=== PATIENT | male | born 1950 | race Caucasian/White ===

== ENCOUNTER 2018-04-13 10:02 | Outpatient (CLI) | payer MEDICARE, SELFPAY ==
[2018-04-13 12:52] LABS: Cholesterol 200 mg/dL (50-200); Glucose 93 mg/dL (70-100); HDL Cholesterol 55 mg/dL (40-60); LDL CHOLESTEROL 133 mg/dL (<100); Triglyceride 109 mg/dL (30-150)
== END 2018-04-13 10:22 ==
LOC: LBO 10:03 → LOS 13:51
PROVIDERS: PCP Family Medicine; Visit Provider Family Medicine
DX: E78.5 Hyperlipidemia, unspecified (principal); I10 Essential (primary) hypertension
CPT/HCPCS: 36415; 80053; 80061; 82947; 83721; 82565; 84132

== ENCOUNTER 2018-12-22 12:26 | Outpatient (CLI) | payer MEDICARE, SELFPAY ==
--- NOTE | 2018-12-22 09:30 | DI.RAD_ITS ---
SYMPTOM/DIAGNOSIS: PROGRESSIVE LT KNEE PAIN, M25.562 LEFT KNEE: There is mild to moderate narrowing of the medial femoral tibial joint space and mild cole-articular spurring. There is also spurring at the articular aspect of the patella. IMPRESSION: Mild to moderate degenerative changes.
== END 2018-12-22 12:46 ==
PROVIDERS: PCP Family Medicine; Visit Provider Family Medicine
DX: M25.562 Pain in left knee (principal); M17.12 Unilateral primary osteoarthritis, left knee
CPT/HCPCS: 73562

== ENCOUNTER 2019-04-13 11:55 | Outpatient (CLI) | payer MEDICARE, SELFPAY ==
[2019-04-13 13:40] LABS: Calculated LDL 130 mg/dL; Cholesterol 213 mg/dL (50-200); HDL Cholesterol 62 mg/dL (40-60); Potassium 4.5 mmol/L (3.5-5.1); Triglyceride 106 mg/dL (30-150)
== END 2019-04-13 12:15 ==
PROVIDERS: PCP Family Medicine; Visit Provider Family Medicine
DX: I10 Essential (primary) hypertension (principal); E78.5 Hyperlipidemia, unspecified
CPT/HCPCS: 36415; 80061; 82565; 84132

== ENCOUNTER 2020-03-14 14:01 | Outpatient (CLI) | payer MEDICARE, SELFPAY ==
--- NOTE | 2020-03-14 11:05 | DI.RAD_ITS ---
EXAM: XR CHEST 2V PA LATERAL CLINICAL HISTORY: sob, chronic cough, loss of taste, R05 TECHNIQUE: 2D digital imaging was performed. COMPARISON: No exams were available for comparison FINDINGS: The heart is not enlarged. The lungs are clear and well expanded. No pleural effusion seen. Mediastin al contours appear intact. IMPRESSION: Normal chest
== END 2020-03-14 14:21 ==
PROVIDERS: PCP Family Medicine; Visit Provider Family Medicine
DX: R05 Cough (principal); R06.02 Shortness of breath; R43.8 Other disturbances of smell and taste
CPT/HCPCS: 71046

== ENCOUNTER 2020-03-16 08:40 | Outpatient (CLI) | payer MEDICARE, SELFPAY ==
[2020-03-19 10:49] LABS: SARS-CoV-2 RNA Undetected (Undetected); SARS-CoV-2 Specimen Source Nasopharynx
== END 2020-03-16 09:00 ==
PROVIDERS: PCP Family Medicine; Visit Provider Family Medicine
DX: Z11.59 Encounter for screening for other viral diseases (principal)
CPT/HCPCS: U0003

== ENCOUNTER 2020-03-19 02:35 | Outpatient (CLI) | payer MEDICARE, SELFPAY ==
[2020-03-19 12:22] LABS: HCT 43.7 % (40.0-50.0); HGB 14.2 g/dL (13.5-17.5); MCH 29.8 pg (27.0-33.0); MCHC 32.5 % (32.0-36.0); MCV 91.8 fL (80-95); MPV 13.8 fL (8.0-11.0); RBC 4.76 10^6/uL (4.36-5.78); RDW 13.1 % (11.8-14.1); RDW-SD 43.9 fL; WBC 18.77 10^3/uL (4.4-10.8)
[2020-03-19 12:41] LABS: ALT 26 U/L (16-63); AST 25 U/L (15-37); Albumin 2.6 g/dL (3.4-5.0); Alkaline Phosphatase 107 U/L (46-116); Anion Gap 9.2 mmol/L (3-11); BUN 18 mg/dL (7-18); Bilirubin, Total 0.5 mg/dL (0.2-1.0); CO2 28.8 mmol/L (21.0-32.0); CREATININE 0.75 mg/dL (0.70-1.30); Calcium 9.8 mg/dL (8.5-10.1); Chloride 96 mmol/L (98-107); Glucose 100 mg/dL (74-106); Potassium 5.1 mmol/L (3.5-5.1); Sodium 134 mmol/L (136-145); TSH (W/Ref FT4) 1.22 uIU/mL (0.36-3.74); Total Protein 6.9 g/dL (6.4-8.2)
[2020-03-19 13:00] LABS: Platelet Count 447 10^3/uL (130-400)
== END 2020-03-19 02:55 ==
PROVIDERS: PCP Family Medicine; Visit Provider Family Medicine
DX: E03.9 Hypothyroidism, unspecified (principal); R53.83 Other fatigue; R63.4 Abnormal weight loss
CPT/HCPCS: 36415; 80053; 85027; 84443

== ENCOUNTER 2020-03-23 03:52 | Outpatient (CLI) | payer MEDICARE, SELFPAY ==
--- NOTE | 2020-03-23 06:45 | DI.US_ITS ---
EXAM: US SOFT TISSUE HEAD OR NECK CLINICAL HISTORY: left supraclavicular fullness,LYMPH NODE ENLARGEMENT,R59.9. TECHNIQUE: Ultrasound was performed using standard protocol. COMPARISON: CT CTA AORTA W/RUNOFF from 04/09/2017 CR XR CHEST 2V PA LATERAL from 03/14/2020 FINDINGS: Sonographic assessment utilizing grayscale and color Doppler imaging was performed and targeted to th e area of clinical concern. On the left side of the neck, there are multiple hypoechoic circumscribed ovoid nodules, consistent w ith abnormally enlarged lymph nodes. The fatty hilum is not maintained. Largest node is inferior in the supraclavicular region and measures 2.3 cm in greatest dimension. No abnormally enlarged lymph nodes are seen on the right side of the neck. IMPRESSION: Multiple enlarged lymph nodes on the left side of the neck. The findings could be secondary to inf ectious or inflammatory causes however lymphoma or metastatic nodes are not excluded. DATA REPOSITORY:
== END 2020-03-23 04:12 ==
PROVIDERS: PCP Family Medicine; Visit Provider Family Medicine
DX: R59.9 Enlarged lymph nodes, unspecified (principal)
CPT/HCPCS: 76536

== ENCOUNTER 2020-04-02 04:56 | Outpatient (CLI) | payer MEDICARE, SELFPAY ==
[2020-04-02 12:53] LABS: Abs Immature Grans 0.13 10^3/uL (0.0-0.06); HCT 39.4 % (40.0-50.0); HGB 12.7 g/dL (13.5-17.5); MCH 29.7 pg (27.0-33.0); MCHC 32.2 % (32.0-36.0); MCV 92.1 fL (80-95); MPV 13.3 fL (8.0-11.0); Nucleated RBC 0 %; Platelet Count 512 10^3/uL (130-400); RBC 4.28 10^6/uL (4.36-5.78); RDW 13.6 % (11.8-14.1); RDW-SD 46.3 fL; WBC 19.13 10^3/uL (4.4-10.8)
[2020-04-02 13:16] LABS: Absolute Eosinophil Count 0.19 10^3/uL (0.0-0.7); Absolute Lymphocyte Count 0.57 10^3/uL (1.2-3.4); Absolute Monocyte Count 1.15 10^3/uL (0.1-0.8); Absolute Neutrophil Count 17.22 10^3/uL (1.2-6.7)
[2020-04-02 13:17] LABS: Diff Comment Manual Differential; RBC Morphology Normal
== END 2020-04-02 05:16 ==
PROVIDERS: PCP Family Medicine; Visit Provider Family Medicine
DX: D72.829 Elevated white blood cell count, unspecified (principal)
CPT/HCPCS: 36415; 85025

== ENCOUNTER → 2020-04-06 08:59 | Outpatient (BNVA) | payer MEDICARE, SELFPAY | PROVIDERS: PCP Family Medicine; Referring Provider Family Medicine; Visit Provider Surgery | DX: D72.820 Lymphocytosis (symptomatic) (principal); R59.9 Enlarged lymph nodes, unspecified; R63.4 Abnormal weight loss; I10 Essential (primary) hypertension; F17.210 Nicotine dependence, cigarettes, uncomplicated | CPT/HCPCS: 99203 ==

== ENCOUNTER 2020-04-11 01:19 | Outpatient (CLI) | payer MEDICARE, SELFPAY ==
--- NOTE | 2020-04-11 08:00 | DI.CT_ITS ---
EXAM: CT NECK CHEST ABD PEL W CLINICAL HISTORY: LYMPH NODE ENLARGEMENT,WT LOSS, R59.9, R63.4, ASSESS FOR LYMPHADENOPATHY AND ? MAS S TECHNIQUE: Imaging Protocol: Axial computed tomography images with coronal and sagittal reformatted images were created and reviewed CONTRAST MATERIAL: Intravenous: Omnipaque 350 Contrast volume:140 cc contrast route:IV - Oral: yes / COMPARISON: CT CTA AORTA W/RUNOFF from 04/09/2017 FINDINGS: Neck CT: Parotids/submandibular/thyroid gland: Normal. Lymphadenopathy: There are several abnormally enlarged lymph nodes seen at the left lower internal j ugular region, level IV, and innumerable nodes seen in the lower posterior neck, level V. The larges t measures up to 2.3 cm in size. Carotids/Jugular: There is mild calcific plaque at both common carotid bulbs but no significant sten osis. Soft tissues: The floor the mouth is unremarkable. The epiglottis and vocal cords are within normal limits. Images through both lung apices are unremarkable. Chest CT: Tracheobronchial tree: Patent where visualized. Mediastinum and Pam: There are innumerable enlarged left axillary lymph nodes. Abnormally enlarged lymph nodes are seen in the superior and anterior mediastinum as well as AP window. No hilar adenopa thy is seen. Pulmonary parenchyma: A 15 millimeter mass is seen above the left diaphragm. There are multiple smal l scattered pulmonary cysts or bullae. Pleura: Small left pleural effusion. Adjacent atelectasis. Heart/Aorta: Thoracic aorta non-dilated. The heart is not dilated. Mild coronary artery calcificatio ns are seen. ABDOMEN: There is extensive paraaortic adenopathy extending from the diaphragm through the bifurcation. Numer ous enlarged lymph nodes are also noted in both internal and external iliac chains. Numerous enlarge d mesenteric lymph nodes are present. There is a large soft tissue density mass seen posterior to th e left kidney, which measures 6.4 cm transverse x 5.7 cm AP x 11.5 cm cephalocaudad. Liver: Normal density. No measurable mass. Gallbladder and biliary tract: No radiodense calculus or dilation. Pancreas: Normal density, no abnormal calcifications or inflammatory process. Spleen: Normal. Kidneys: Normal size, contour and axis. No radiodense stones or obstructive uropathy. No masses seen. Adrenal glands: No masses seen. Abdominal Aorta and branch vessels: Abdominal portion non-dilated. Prominent atherosclerotic changes. PELVIS: Bladder: Symmetric distention, question of mild wall thickening. Bowel: No obstruction or bowel wall thickening. Severe diverticulosis greatest in the sigmoid. Peritoneal cavity: No ascites, collection or mesenteric inflammatory response. Bones: Degenerative changes. No lytic or blastic lesions are identified. IMPRESSION: Extensive adenopathy seen along the left side of the neck into the left upper chest and axilla. Medi astinal adenopathy. 1.5 centimeter nodule at the left lower lobe. Extensive retroperitoneal and mes enteric adenopathy. RADIATION DOSE DELIVERED: Total DLP DATA REPOSITORY: All CT scans at this facility are submitted to the National Radiology Data Registry (NRDR) Dose Index Registry (DIR) with the [employer] (A[employer]). RADIATION OPTIMIZATION: All CT scans at this facility use at least one of these dose optimization te chniques: automated exposure control; mA and/or kV adjustment per patient size (includes targeted exa ms where dose is matched to clinical indication); or iterative reconstruction.
[2020-04-11] MEDS: Omnipaque 350 MG/ML 50 ML BTL PO (12:42)
[2020-04-11] MEDS: Breeza Beverage 473 ML BTL PO ×2 (12:42→12:43)
[2020-04-11] MEDS: Omnipaque 350 MG/ML 100 ML BTL IV (14:21)
== END 2020-04-11 01:39 ==
PROVIDERS: PCP Family Medicine; Visit Provider Surgery
DX: R59.0 Localized enlarged lymph nodes (principal); R91.1 Solitary pulmonary nodule; R59.9 Enlarged lymph nodes, unspecified; R63.4 Abnormal weight loss
CPT/HCPCS: 70491; 74177; 71260; J3490; Q9967

== ENCOUNTER 2020-04-18 08:24 | Day surgery (SDC) | payer MEDICARE, SELFPAY ==
--- NOTE | 2020-04-18 06:59 | ROE_ITS ---
Date of service: 04/18/20 Time of Service: 12:16 Operative Note Operative Note DATE OF PROCEDURE: 04/18/20 PRE-OP DIAGNOSIS: Lymphadenopathy, soft tissue mass, weight loss POST-OP DIAGNOSIS: same PROCEDURE: Excisional biopsy of left axillary lymph node x2 SURGEON: Zaria Hou CAFETERIA ASSOCIATE: Sita Cheung ANESTHESIA: MAC and local PATHOLOGY: other (lymph node) COMPLICATIONS: None Patient was transported to: same day Patient's condition: stable Indications: Mr. Dunham is a pleasant 70-year-old gentleman who is here today for discussion of lymph node biopsy. He started to feel fatigued in October of this year. He had some fevers at that time and thought maybe he had covert. He never did get tested for it. He also lost his appetite. He started to feel a little bit better and then felt worse again in November. He was in [place] at that time. He is now back here in [place] and was seen by his primary care physician Dr. Tracey. He was noted to have some fullness in his left neck and ultrasound was done which showed some lymphadenopathy with the largest lymph node measuring 2.3 cm. Mr. Dunham feels that the lymph node is not as large as it was at the time of the ultrasound. He still feels quite fatigued and has no appetite. He is also lost weight since this all started. Lab work showed increase in his white blood cell count and repeat a couple of weeks later shows it is even higher now. He denies any cough, or shortness of breath. Chest x- ray was negative. He is a smoker. He has a 40-year pack history. Procedure Description: After informed consent was obtained the patient was taken to the operating position. Monitors were applied and she was sedated. A timeout was done. Patient name, , allergies to medications, procedure type and site, antibiotic given and DVT prophylaxes were reviewed. Fire risk was assessed. The patients left axilla was then prepped and draped in a standard surgical fashion with Chlorhexidine. The axilla was then palpated. The enlarged lymph nodes were identified. The skin and subcutaneous tissue was injected with 1% Lidocaine mixed 50/50 with Marcaine 0.5 % with epinephrine. Once the area was numb an incision was made with a 15 blade. The incision was 3 cm long. Dissection was done with cuatery through the subcutaneous tissue. The axilla was then again palpated. Level 1 axillary lymph nodes were palpated. 2 lymph nodes were dissected out. The lymph node vasculature was clipped and cut. The lymph nodes were removed and placed in a sterile container and send to pathology. The axilla was irrigated. There was a small amount of bleeding and this was cauterized. The axilla was irrigated again and at this point there was no more bleeding. The subcutaneous tissues were re-approximated with 3-0 Vicryl. The dermis was re-approximated with 4-0 Vicryl. The skin was cleaned and dried and skin affix was applied. The patient was worken up and taken back to [facility] in stable condition. There were no immediate complications and the patient tolerated the procedure well. Sponge, instrument and needle counts were correct at the end of the case.
--- NOTE | 2020-04-18 07:01 | W.PM.DSUDISC ---
Discharge Plan Disposition Patient Disposition: HOME Condition: Good Discharge Details Reason For Visit: lymphadenopathy, weight loss Attending Provider: Zaria Hou Primary Care Provider: Socrates Tracey Home Meds and New Rx's Prescriptions: Continued lisinopril 5 mg tablet 5 mg PO DAILY Qty: 90 RF: 3 cholecalciferol (vitamin D3) 50 mcg (2,000 unit) capsule 50 mcg PO DAILY RF: 0 aspirin 81 mg tablet,delayed release (DR/EC) 81 mg PO DAILY RF: 0 triamcinolone acetonide 15 GM cream 1 appful Topical BID PRNQty: 30 RF: 0 vitamin A 25,000 unit Capsule 25,000 unit PO DAILY RF: 0 zinc 50 mg Tablet 50 mg PO BID RF: 0 Lyposomal 1 ml 1 ml PO DAILY RF: 0 Quecertin 1 ea PO DAILY RF: 0 Discharge Instructions Additional Instructions: Activity at Home after surgery: 1. As tolerated Diet, Nutrition, & wound healin. Avoid alcohol until after you are recovered from your surgery 2. Make sure to eat plenty of lean protein (meat, fish, eggs, cottage cheese, beans) 3. Eat a variety of fruits and vegetables. Eat plenty of high fiber foods to avoid constipation. 4. Drink plenty of liquids to stay hydrated and avoid constipation Pain Medications: 1. Tylenol 650 mg every 6 hours and Ibuprofen 600 mg every 6 hours as needed. May alternate every 3 hours between the 2 medications 2. If a narcotic has been prescribed take as directed only for breakthrough pain For Constipation: 1. Take Milk of Magnesia or MiraLax as needed for constipation Other: 1. You may shower daily. Do not scrub the incisions 2. Do not soak the incisions for 1 week 3. You may alternate ice and heat as needed for pain and swelling Wound Care: 1. Keep the incisions clean and dry Other Services that may have been ordered: 0 Home Health- to help with dressing changes 0 Outpatient physical therapy Please call our office if you develop: 1. Fevers >101.5 2. Nausea or Vomiting 3. Worsening pain 4. Redness and thick discharge from the wounds If after hours please call the Hospital at and ask to speak to the on-call surgeon Activity:: Activity as Tolerated Remove Dressings/Wound Care:: 24 hours Shower/Bathe:: 24 hours Diet:: As Tolerated Discharge Orders Discharge Orders: Discharge Order (Routine); Ordered 04/18/20 Ordered By: Zaria Hou
[2020-04-18 08:28] VITALS: BP 109/70; PULSE 93; RESP 17; TEMP 36.4; O2SAT 93
[2020-04-18] MEDS: Lactated Ringers 1,000 ML 80 ML IV (09:10)
[2020-04-18] MEDS: ceFAZolin 2 GM/50 ML BAG IVPB (11:14)
[2020-04-18] MEDS: Lidocaine 1% Multi-Dose 50 ML VIAL (11:18)
--- NOTE | 2020-04-18 11:33 | LYM_PTH ---
PATIENT: Ben Dunham LOC: [facility] U#:[id number] AGE/SX: 70/M ROOM: RE04/18/[address]: Zaria Hou MD : 1950 BED: DIS: 04/18/2020 SPEC #: [id number] RECD: 04/18/20 16:10 STATUS: FAHAD REQ #: [id number] RADHA: 04/18/20 11:[address]: Zaria Hou DEPT: Surgical Specimen RECD BY: Florina Barbosa ENTERED: 04/18/20 16:13 SP TYPE: LYM OTHR DR: Socrates Tracey MD Tissues: 1 - LYMPH NODE BIOPSY 2 - FLOW CYTOMETRY NODE/TISSUE Procedures: GROSS AND MICRO LEVEL 4 IMMUNOPEROXIDASE STAIN FISH DNA Probe FLOW CYTOMETRY LYMPHOMA PNL Comments: [id number] (FLOW - [id number]) ([employer] in [employer] - [id number])
[2020-04-18 12:28] VITALS: BP 124/71; PULSE 90; RESP 18; TEMP 36.2; O2SAT 94
== END 2020-04-18 12:49 | disposition home or self-care (01) ==
LOC: SUR 08:24
PROVIDERS: PCP Family Medicine; Visit Provider Surgery
PROC: (CPT 38500; principal; 2020-04-18 10:30)
DX: D47.Z9 Other specified neoplasms of uncertain behavior of lymphoid, hematopoietic and related tissue (principal); R63.4 Abnormal weight loss; F17.210 Nicotine dependence, cigarettes, uncomplicated
CPT/HCPCS: 38525; 88271; 88305; 88184; 88185; 88361; J0690; J2250

== ENCOUNTER → 2020-05-01 10:31 | Outpatient (BNVA) | payer MEDICARE, SELFPAY | PROVIDERS: PCP Family Medicine; Referring Provider Family Medicine; Visit Provider Surgery | DX: C85.18 Unspecified B-cell lymphoma, lymph nodes of multiple sites (principal); I10 Essential (primary) hypertension ==

== ENCOUNTER 2020-05-16 11:04 | Emergency (ER) | payer MEDICARE, SELFPAY ==
[2020-05-16] VITALS (39 sets, daily range): BP systolic 91–123; BP diastolic 51–72; PULSE 87–131; RESP 14–49; TEMP 36–36.7; O2SAT 94–100
--- NOTE | 2020-05-16 11:00 | RT.EKG_ITS ---
APPROVED REPORT Exam: Resting ECG Patient Location: E HR:106 bpm ECG Measurements Heart Rate 106 AXIS VA 130 P 45 QRSd 74 QRS 39 QT 290 T 174 QTc 385 Conclusion Sinus tachycardia. complex.. Probable left atrial enlargement
--- NOTE | 2020-05-16 11:10 | ED.GENADUL_ITS ---
Discharge Plan Disposition Patient Disposition: HOME Condition: Improving Discharge Details Clinical Impression: Dehydration, B-cell lymphoma Primary Care Provider: Socrates Tracey ED Provider: Kar Morrissey Home Meds and New Rx's Prescriptions: New ondansetron HCl [Zofran] 4 mg tablet 4 mg PO QID PRN (Reason: nausea and vomiting) Qty: 10 RF: 0 Continued aspirin 81 mg tablet,delayed release (DR/EC) 81 mg PO DAILY RF: 0 triamcinolone acetonide 15 GM cream 1 appful Topical BID PRNQty: 30 RF: 0 vitamin A 25,000 unit Capsule 25,000 unit PO DAILY RF: 0 zinc 50 mg Tablet 50 mg PO BID RF: 0 Quecertin 1 ea PO DAILY RF: 0 cholecalciferol (vitamin D3) [Vitamin D3] 125 mcg (5,000 unit) Tablet 5,000 unit PO DAILY RF: 0 fluconazole 200 mg Tablet 200 mg PO DAILY RF: 0 allopurinol 300 mg Tablet 300 mg PO DAILY RF: 0 No Action lisinopril 5 mg tablet 5 mg PO DAILY Qty: 90 RF: 3 Discharge Instructions Instructions: Dehydration (ED) Additional Instructions: Home to rest today. Small, frequent sips of fluids so that you maintain good hydration. May use Zofran, as prescribed, as needed sparingly for nausea. Hold your lisinopril until seen in clinic on Thursday. Begin 1 or 2 protein shakes such as Ensure every day. Referrals: Cheryl Fry MD [ NON-[facility] STAFF PHYSICIAN] - Medical Decision Making 70-year-old male with recently diagnosed B-cell lymphoma with mesenteric, retroperitoneal, left chest and left neck adenopathy. He has established care with Dr. Cadena. By report PET scan obtained May 03 showed lymphomatous tumor in the anne regions of the neck, chest, abdomen and pelvis; new small pericardial effusion and moderate sized left pleural effusion. Has bone marrow biopsy pending. He has a plan to start R-CHOP on Thursday. Patient is tachycardic with soft blood pressure 100/60. Differential diagnosis includes dehydration, electrolyte abnormality. IV placed, screening EKG, laboratories, urinalysis, chest x-ray obtained. Patient given 1 L normal saline fluid bolus. Labs: White blood cell count 29, hematocrit 34, platelets 414. Sodium 134, potassium 5.1, chloride 96, bicarb 28, BUN 18, creatinine 0.7. Magnesium 1.6, calcium is 11. Albumin is low at 1.7. UA with SG 1.02 Chest x-ray with previously known left pleural effusion. After 2.5 L fluid, supplementation with 2 g of magnesium, patient beginning to feel better. He ate some pudding and took liquids by mouth. Blood pressure improved to 123/61 with a pulse of 87. I will have him hold his lisinopril. He has follow-up at the cancer center on Thursday. Lab Data Lab results reviewed: Yes I reviewed the patient's lab results. Labs: Laboratory Results - last 24 hr 05/16/20 11:30 WBC 29.07 H* RBC 3.82 L Hgb 11.1 L Hct 34.2 L MCV 89.5 MCH 29.1 MCHC 32.5 RDW 14.6 H Plt Count 414 H MPV 11.8 H Immature Gran % 1.5 Neutrophils % 90.5 Lymphocytes % 1.8 Monocytes % 4.6 Eosinophils % 1.3 Basophils % 0.3 Nucleated RBC % 0 Absolute Neutrophils 26.31 H Absolute Lymphocytes 0.52 L Absolute Monocytes 1.34 H Absolute Eosinophils 0.38 Absolute Basophils 0.09 RBC Morphology Normal HPI General Mode of arrival: ambulatory . Date/Time Provider Initiated Documentation: 05/16/20 11:04 . Limitations to Documentation: no limitations . Information obtained by: patient . History of Present Illness 70 year old M presents to the emergency department with the chief complaint of Generalized weakness worsening over 1 months time, described as moderate, Quality is described as dull and constant, Patient reports no radiation. Patient started experiencing this week(s) and it has been intermittent. Rest improves symptom(s), Movement worsens symptoms . Patient notes loss of appetite and weakness; denies chest pain and headaches. Patient did receive the following treatments prior to arrival, none Related Data Home Medications Medication Instructions Recorded Confirmed triamcinolone acetonide 1 appful TOPICAL BID PRN #30 gm 02/24/18 05/16/20 aspirin 81 mg tablet,delayed 81 mg PO DAILY 03/13/20 05/16/20 release Quecertin 1 ea PO DAILY 04/18/20 05/16/20 vitamin A 25,000 unit PO DAILY 04/18/20 05/16/20 zinc 50 mg PO BID 04/18/20 05/16/20 lisinopril 5 mg tablet 5 mg PO DAILY #90 tab 04/27/20 05/16/20 allopurinol 300 mg PO DAILY 05/16/20 cholecalciferol (vitamin D3) 5,000 unit PO DAILY 05/16/20 05/16/20 [Vitamin D3] fluconazole 200 mg PO DAILY 05/16/20 05/16/20 ondansetron HCl [Zofran] 4 mg PO QID PRN #10 tab 05/16/20 Previous Rx's Medication Instructions Recorded lisinopril 5 mg tablet 5 mg PO DAILY #90 tab 04/27/20 ondansetron HCl [Zofran] 4 mg PO QID PRN #10 tab 05/16/20 Allergies Allergy/AdvReac Type Severity Reaction Status Date / Time ibuprofen Allergy Intermediate Hives Verified 05/16/20 11:14 naproxen [From Aleve] Allergy Intermediate dizzy, Verified 05/16/20 11:14 light headed. Review of Systems Narrative: 50 pound weight loss. No fall or syncope. No chest pain. Some increased weakness with exertion. Plans to start chemo on Thursday. 8 systems reviewed and otherwise negative [facility] Medical History Hypertension, essential, benign (02/24/18) Knee pain suspicious for meniscal injury/degeneration Overweight (03/12/16) SOB (shortness of breath) Tobacco abuse (03/12/16) Weight loss -30 lbs Surgical History H/O lymph node biopsy Family History Mother , AGE 97 Breast cancer Father , AGE 63 Liver disease Cirrhosis Alcohol abuse Sister No problems noted. Sister Lymphoma Son No problems noted. Son No problems noted. Social History Smoking/Tobacco Use Status: Current-Occasional Tobacco Type: cigarettes Years smoked: 40 Tobacco: How many years used: 40 Quit status: considering quitting Second Hand Exposure: Yes Alcohol Intake: former Drug use: Daily Substance use type: marijuana Details: Pt states he has decreased smoking from 1/2ppd to 2-3 cig/day, states has not drank etoh +6 wks, marijuana 3-4xwk. Caregiver/Support person: No Housing: house Communication Needs: None Do you need help understanding health information?: Rarely current occupation: CONTRACTOR Pets and animals: No Sexually active: No Do you think of yourself as: straight/heterosexual Current gender identity: male What is your relationship status?: How often do you talk on the phone with friends or family?: once per week How often do you get together with friends or relatives?: once per week Do you belong to any clubs or organized social groups?: yes Panel score (0-1 are the most socially isolated patients): 1 What type of physical activity do you participate in: walking Duration: 15-30 minutes/day Frequency: 3-4 times per week Petrona/Pentecostal: None Special petrona needs: No Seatbelt use: always Helmet use: No Drive intox or ride w/intox [employer] company flatbed driver: No Do you feel safe at home: Yes Do you feel safe in your relationship?: Yes Exam Narrative Exam Narrative: GEN: awake, alert, oriented 3. Pleasant, well groomed, interactive. HEAD: Normocephalic, atraumatic ENT: Mucous membranes moist, oropharynx unremarkable, External ear exam unremarkable EYES: PERRL, EOMI NECK: Full ROM, no OLY, no menigismus CHEST/RESP: Healing anterior port site right, nontender, clear to auscultation bilateral, no wheeze/rhonchi/rales CARDIOVASCULAR: Regular and tachycardic, no murmur, rub briana. 2+ Rad pulse bilateral ABDOMEN: Soft, nontender, no mass. +Bowel sounds EXT: Full ROM, no edema, no rash Neuro: Grossly normal neurologic exam, conversant, interactive. Psych: Speech fluent, thoughts congruent, affect normal
--- NOTE | 2020-05-16 11:30 | RT.EKG_ITS ---
APPROVED REPORT Exam: Resting ECG Patient Location: E HR:85 bpm ECG Measurements Heart Rate 85 AXIS MI 202 P 56 QRSd 122 QRS -74 QT 425 T 158 QTc 507 Conclusion Sinus rhythm...normal P axis, V-rate 60- 99 Probable left atrial enlargement...P >50mS, <-0.10mV V1 Nonspecific T abnormalities, lateral leads...T <-0.10mV, I aVL V5 V6
[2020-05-16] MEDS: Normal Saline 1,000 ML 1000 ML IV (12:03)
[2020-05-16 12:11] LABS: Abs Immature Grans 0.45 10^3/uL (0.0-0.06); Basophils % 0.3; Eosinophils % 1.3; HCT 34.2 % (40.0-50.0); HGB 11.1 g/dL (13.5-17.5); Immature Grans % 1.5; Lymphocytes % 1.8; MCH 29.1 pg (27.0-33.0); MCHC 32.5 % (32.0-36.0); MCV 89.5 fL (80-95); MPV 11.8 fL (8.0-11.0); Monocytes % 4.6; Neutrophils % 90.5; Nucleated RBC 0 %; RBC 3.82 10^6/uL (4.36-5.78); RDW 14.6 % (11.8-14.1); RDW-SD 47.2 fL
[2020-05-16 12:16] LABS: Absolute Basophil Count 0.09 10^3/uL (0.0-0.2); Absolute Eosinophil Count 0.38 10^3/uL (0.0-0.7); Absolute Lymphocyte Count 0.52 10^3/uL (1.2-3.4); Absolute Monocyte Count 1.34 10^3/uL (0.1-0.8); Absolute Neutrophil Count 26.31 10^3/uL (1.2-6.7)
[2020-05-16 12:38] LABS: ALT 41 U/L (16-63); AST 20 U/L (15-37); Albumin 1.7 g/dL (3.4-5.0); Alkaline Phosphatase 167 U/L (46-116); Anion Gap 7.4 mmol/L (3-11); BUN 17 mg/dL (7-18); Bilirubin, Total 0.3 mg/dL (0.2-1.0); CO2 28.6 mmol/L (21.0-32.0); CREATININE 0.87 mg/dL (0.70-1.30); Chloride 91 mmol/L (98-107); Glucose 115 mg/dL (74-106); Magnesium 1.6 mg/dL (1.8-2.4); Potassium 4.1 mmol/L (3.5-5.1); Sodium 127 mmol/L (136-145); Total Protein 6.6 g/dL (6.4-8.2)
[2020-05-16 12:42] LABS: WBC 29.07 10^3/uL (4.4-10.8)
[2020-05-16 12:43] LABS: Diff Comment Agrees w/ Instrument; Platelet Count 414 10^3/uL (130-400); RBC Morphology Normal
[2020-05-16 12:50] LABS: Troponin I < 0.05 ng/mL (<0.06)
--- NOTE | 2020-05-16 12:50 | DI.RAD_ITS ---
EXAM: XR CHEST 2V PA LATERAL CLINICAL HISTORY: Generalized weakness, metastatic lymphoma TECHNIQUE: 2D digital imaging was performed. COMPARISON: CR XR CHEST 2V PA LATERAL from 03/14/[address] NECK CHEST ABD PEL W from 04/11/2020 FINDINGS: MEDIASTINUM: Normal. HEART: Normal. PULMONARY VASCULATURE: Normal. LUNGS: There is an infiltrate in the left lung base. PLEURAL SPACE: There is a small left pleural effusion. Pleural effusion is larger when compared to t he CT scan from 04/11/2020. No right pleural effusion. No pneumothorax. BONE:Within normal limits for the patient's age. OTHER FINDINGS:There is an indwelling central venous catheter. The tip of the catheter is in good po sition at the junction of the superior vena cava and right atrium. IMPRESSION: Left pleural effusion. The effusion is increased in size compared to the CT scan from 04/11/2020. Left basilar infiltrate which may represent atelectasis or pneumonia. DATA REPOSITORY: RADIATION DOSE DELIVERED:
[2020-05-16] MEDS: Ondansetron 4 MG/2 ML VIAL IVP (12:53)
[2020-05-16] MEDS: Normal Saline 1,000 ML 200 ML IV (12:54)
[2020-05-16] MEDS: MAGNESIUM SULFATE 1 GM/100 ML BAG IVPB (13:11)
[2020-05-16 14:13] LABS: Bilirubin Negative (Negative); Blood Negative (Negative); Clarity Clear (Clear); Glucose Negative (Negative); Ketones Negative (Negative); Leukocyte Esterase Negative (Negative); Nitrite Negative (Negative)
[2020-05-16] MEDS: Normal Saline 500 ML IV (14:53)
[2020-05-16] MEDS: Acetaminophen 500 MG TAB 1000 MG PO (15:28)
== END 2020-05-16 16:25 | disposition home or self-care (01) ==
PROVIDERS: Emergency Provider Emergency Medicine; PCP Family Medicine
DX: E86.0 Dehydration (principal); C85.18 Unspecified B-cell lymphoma, lymph nodes of multiple sites; E83.42 Hypomagnesemia; I10 Essential (primary) hypertension; Z79.899 Other long term (current) drug therapy
CPT/HCPCS: 36415; 80053; 93005; 96361; 96365; 96375; 99285; 71046; 81003; 83735; 84484; 85025; 93010; J2405; J3475

== ENCOUNTER 2020-05-22 01:20 | Outpatient (CLI) | payer MEDICARE, SELFPAY ==
[2020-05-22 14:01] LABS: ALT 53 U/L (16-63); AST 33 U/L (15-37); Alkaline Phosphatase 161 U/L (46-116); Anion Gap 7.6 mmol/L (3-11); BUN 23 mg/dL (7-18); Bilirubin, Total 0.4 mg/dL (0.2-1.0); CO2 29.4 mmol/L (21.0-32.0); CREATININE 0.61 mg/dL (0.70-1.30); Calcium 9.7 mg/dL (8.5-10.1); Chloride 94 mmol/L (98-107); Glucose 111 mg/dL (74-106); Potassium 4.2 mmol/L (3.5-5.1); Sodium 131 mmol/L (136-145); Total Protein 5.5 g/dL (6.4-8.2)
[2020-05-22 14:20] LABS: LDH 309 U/L (85-227); PHOSPHORUS 3.7 mg/dL (2.6-4.7)
== END 2020-05-22 01:40 ==
PROVIDERS: PCP Family Medicine; Visit Provider Internal Medicine Hematology & Oncology
DX: C83.38 Diffuse large B-cell lymphoma, lymph nodes of multiple sites (principal)
CPT/HCPCS: 36415; 80053; 83615; 84100; 84550

== ENCOUNTER 2020-09-22 10:25 | Inpatient (IN) | payer MEDICARE, SELFPAY ==
[2020-09-22] VITALS (13 sets, daily range): BP systolic 90–138; BP diastolic 57–76; PULSE 88–137; RESP 5–24; TEMP 36.1–38.2; O2SAT 93–97
--- NOTE | 2020-09-22 10:15 | RT.EKG_ITS ---
APPROVED REPORT Exam: Resting ECG Patient Location: E HR:135 bpm ECG Measurements Heart Rate 135 AXIS LA [id number] P [id number] QRSd 78 QRS 43 QT 284 T -58 QTc 426 Conclusion Atrial fibrillation...V-rate 101-170, irreg A-activity Ventricular premature complex...V complex w/ short R-R interval Low voltage, extremity leads...all extremity leads <0.5mV Repol abnrm suggests ischemia, anterolateral...ST dep, T neg, I aVL V2-V6 I have reviewed and interpreted ECG and agree with software generated interpretation.
--- NOTE | 2020-09-22 10:15 | W.ED.GENAD ---
Discharge Plan Disposition Patient Disposition: HOME Condition: Stable Discharge Details Clinical Impression: Pneumonia, Severe neutropenia, Atrial fibrillation with rapid ventricular response, Pleural effusion on left Primary Care Provider: Socrates Tracey ED Provider: Aminata Maradiaga Discharge Data Discharge Date/Time-TO BE ENTERED AT DEPARTURE: 09/22/20 14:51 Medical Decision Making 70yo M w/ a h/o recently diagnosed B-cell lymphoma with mesenteric, retroperitoneal, left chest and left neck adenopathy here with shortness of breath, productive cough and left-sided back pain for the past few days. EKG notes a rate of 135, atrial fibrillation, no STEMI. Patient recently diagnosed with atrial fibrillation and started on metoprolol and Eliquis. Heart rate 130s on the monitor. Remainder vitals within normal limits. Patient has diminished breath sounds on the left side of the chest. He also has reproducible left-sided back pain. Differential diagnosis includes PE, dissection, pneumonia, atrial fibrillation with RVR, thoracic strain. Will place an IV, bolus IV fluids, screening labs, CT chest, Lidoderm patch, morphine, metoprolol IV, DuoNeb. We will also obtain a rapid Covid test. Heart rate remains in the 110s to 120s, which may be a tachycardia secondary to the albuterol. We will continue to monitor to see if we need additional rate control. Labs and imaging reviewed. White blood cell count as well with 0.07. Hemoglobin 9.8. Platelets 87. Absolute neutrophil 0.04. Findings consistent with severe neutropenia. Magnesium 1.4, will replete. Troponin negative. Rapid Covid test obtained and negative. Chest x-ray notes a left mid and lower lobe infiltrate and left pleural effusion. CT chest negative for PE but does note a left lower lobe pneumonia and left pleural effusion. Considering patient's immunocompromised state, will cover with broad-spectrum antibiotics. Case discussed with hospitalist accepts patient for admission. Patient's Sister Bina informed of plan. Heart rate remains in the low 100s to 120s after metoprolol. Will give a dose of Cardizem IV. Case discussed with [facility] heme-onc who agreed with broad-spectrum coverage. No other acute recommendations at this time. Medical Records Medical records reviewed: Yes I reviewed the patient's medical records. Imaging Data Radiologic Study: Radiologist's impression: XR Chest, 1 View Exam date and time: 09/22/2020 12:41 PM Age: 70 years old Clinical indication: Screening exam; Other screening TECHNIQUE: Imaging protocol: XR of the chest Views: 1 view. COMPARISON: CR XR CHEST 2V PA LATERAL 05/16/2020 12:38 PM FINDINGS: Tubes, catheters and devices: Indwelling right central venous catheter tip in SVC. Lungs: New alveolar infiltrate in the left mid and lower lung. Decrease in the previous left pleural effusion. Pleural spaces: Moderate left pleural effusion Heart/Mediastinum: Unremarkable. No cardiomegaly. Bones/joints: Degenerate arthritis in the shoulders and spine. Soft tissues: Surgical clips left axilla. IMPRESSION: 1. Infiltrate left mid and lower lung with moderate left pleural effusion. CT Angiography Chest With Contrast Exam date and time: 09/22/2020 10:47 AM Age: 70 years old Clinical indication: Other: L sided back pain, SOB, R/O pe; Additional info: Cough, R/O pneumonia TECHNIQUE: Imaging protocol: Computed tomographic angiography of the chest with contrast. 3D rendering (Not supervised by radiologist): MIP and/or 3D reconstructed images were created by the technologist. Radiation optimization: All CT scans at this facility use at least one of these dose optimization techniques: automated exposure control; mA and/or kV adjustment per patient size (includes targeted exams where dose is matched to clinical indication); or iterative reconstruction. Contrast material: OMNIPAQUE 350; Contrast volume: 100 ml; Contrast route: INTRAVENOUS (IV); COMPARISON: CT NECK CHEST ABD PEL W 04/11/2020 1:53 PM FINDINGS: Pulmonary arteries: Normal. No pulmonary emboli. Aorta: Unremarkable. No aortic aneurysm. No aortic dissection. Lungs: New infiltrate with volume loss in the lower lobe posteriorly.. Stable tiny bilateral pulmonary nodules. Several which are calcified consistent with granulomata. Stable changes of emphysema. Pleural spaces: Moderate left pleural effusion has increased since 04/11/2020 Heart: Vascular calcifications including coronary artery calcifications. Indwelling central venous catheter with tip in SVC. Lymph nodes: The enlarged supraclavicular nodes seen on 04/11/2020 are not seen today. Significant interval decrease in the size of the previously enlarged mediastinal and left axillary lymph nodes. No enlarged lymph nodes. Kidneys and ureters: Interval decrease in the size of the lobulated left retroperitoneal soft tissue mass, posterior to left kidney. It measures approximately 4.6 by 2.3 cm in transverse and AP dimension today compared with 7.1 by 5.9 cm on 04/11/2020 exam. Bones/joints: Degenerative arthritis in the spine and shoulders. Old left rib fractures. Soft tissues: Surgical clips in the left axilla. IMPRESSION: 1. No pulmonary embolism identified. 2. Left lower lobe infiltrate and moderate left pleural effusion increased since 04/11/2020. 3. Decrease in size of left posterior renal mass and significant decrease in previously enlarged supraclavicular, mediastinal, left axillary retroperitoneal lymph nodes. ECG Data Attestation: I personally reviewed and interpreted this ECG (s) as follows: Interpretation: Rate of 135, atrial fibrillation. No STEMI. QRS 78. HPI General Mode of arrival: EMS. Date/Time Provider Initiated Documentation: 09/22/20 11:22. Limitations to Documentation: no limitations. Information obtained by: patient. HPI Narrative: Patient is a 70-year-old male recently diagnosed B-cell lymphoma with mesenteric, retroperitoneal, left chest and left neck adenopathy presents for productive cough, shortness of breath and left-sided back pain for the past few days. Patient was diagnosed with lymphoma in May and finished his last chemotherapy treatment 1 week ago. He states his cough has been productive of clear sputum but denies any green or yellow sputum. He has had diminished appetite for several weeks. He denies any vomiting or diarrhea. He denies any chest pain but does admit to intermittent shortness of breath that is worse with movement and deep breaths. He does also admit to left-sided back pain that is worse with movement and deep breaths. Denies any known injury. He denies any known exposure to coronavirus. He also states he was diagnosed with atrial fibrillation recently and started on metoprolol and Eliquis and states he has not missed any doses. He did take his metoprolol p.o. this morning. He also states he was diagnosed recently with thrush and has been using his nystatin which has been improving the symptoms. Related Data Home Medications Medication Instructions Recorded Confirmed metoprolol succinate 100 mg 100 mg PO DAILY #90 tab 07/17/20 09/22/20 tablet,extended release 24 hr apixaban [Eliquis] 5 mg PO BID 09/22/20 09/22/20 nystatin 100,000 unit PO QID 09/22/20 09/22/20 prochlorperazine maleate 10 mg PO BID PRN 09/22/20 09/22/20 [Compazine] Previous Rx's Medication Instructions Recorded metoprolol succinate 100 mg 100 mg PO DAILY #90 tab 07/17/20 tablet,extended release 24 hr Allergies Allergy/AdvReac Type Severity Reaction Status Date / Time ibuprofen Allergy Intermediate Hives Verified 09/22/20 11:54 naproxen [From Aleve] AdvReac Intermediate dizzy, Verified 09/22/20 11:56 light headed. General RAMON: 3 Review of Systems All systems reviewed & are unremarkable except as noted in HPI and below Constitutional Constitutional: Reports as per HPI, Denies chills and Denies fever(s) Eyes Eyes: Denies blurry vision ENT Ears, Nose, Mouth, and Throat: Denies dizziness, Denies sore throat and Denies throat swelling Cardiovascular Cardiovascular: Denies chest pain and Reports dyspnea Respiratory Respiratory: Reports cough and Reports dyspnea Gastrointestinal Gastrointestinal: Denies abdominal pain, Denies diarrhea and Denies vomiting Genitourinary Genitourinary: Denies hematuria and Denies dysuria Musculoskeletal Musculoskeletal: Reports back pain and Denies numbness Integumentary/Breasts Skin/Breast: Denies lesions and Denies rash Neurologic Neurologic: Denies dizziness, Denies localized weakness and Denies numbness Allergic/Immunologic Allergic/Immunologic: Denies throat swelling [facility] Medical History Hypertension, essential, benign (02/24/18) Knee pain suspicious for meniscal injury/degeneration Overweight (03/12/16) SOB (shortness of breath) Tobacco abuse (03/12/16) Weight loss -30 lbs Surgical History H/O lymph node biopsy Family History Mother , AGE 97 Breast cancer Father , AGE 63 Liver disease Cirrhosis Alcohol abuse Sister No problems noted. Sister Lymphoma Son No problems noted. Son No problems noted. Social History Smoking/Tobacco Use Status: Current-Occasional Tobacco Type: cigarettes Years smoked: 40 Tobacco: How many years used: 40 Quit status: considering quitting Second Hand Exposure: Yes Smoking risk assessment performed?: Yes Alcohol Intake: former Drug use: Daily Substance use type: marijuana Details: Pt states he has decreased smoking from 1/2ppd to 2-3 cig/day, states has not drank etoh +6 wks, marijuana 3-4xwk. Caregiver/Support person: No Housing: house Communication Needs: None Do you need help understanding health information?: Rarely current occupation: CONTRACTOR Pets and animals: No Sexually active: No Do you think of yourself as: straight/heterosexual Current gender identity: male What is your relationship status?: How often do you talk on the phone with friends or family?: once per week How often do you get together with friends or relatives?: once per week How often do you attend shinto or buddhist services?: 1-3 times per year Do you belong to any clubs or organized social groups?: yes Panel score (0-1 are the most socially isolated patients): 1 What type of physical activity do you participate in: walking Duration: 15-30 minutes/day Frequency: 3-4 times per week Petrona/Restorationism: None Special petrona needs: No Seatbelt use: always Helmet use: No Drive intox or ride w/intox feedmobile driver: No Do you feel safe at home: Yes Do you feel safe in your relationship?: Yes Exam Const General: cooperative, healthy appearing and no acute distress HENMT Head: normal to inspection Ears: hearing grossly normal bilaterally Face and sinus: normal facial exam Mouth: tongue abnormal with white coating (Minimal) Eyes General: appearance normal, both eyes and all related structures Pupils: PERRL EOM: EOM intact bilaterally Neck Neck: normal visual inspection and No submandibular swelling Lymphatic: no lymphadenopathy noted Chest Chest: normal inspection of the chest and no tenderness Resp Effort & Inspection: normal respiratory effort and able to speak in complete sentences Auscultation: diminished lung sounds on the left throughout, no rhonchi and no wheezes Cardio Rate: regular rate Rhythm: regular rhythm GI Inspection: normal to inspection Palpation: soft, not firm, not rigid and nontender Auscultation: normal bowel sounds Back/Spine/Pelvis Thoracic/Lumbar Spine: thoracic and lumbar spine normal to inspection Back/spine/pelvis image: 1. Tenderness to palpation left upper and mid back. No erythema, edema, ecchymosis, rash or crepitus. Skin General skin exam: no rashes or lesions noted Neuro General: patient alert, patient awake and patient oriented x3 Cognition: normal cognition Speech: speech normal Motor: muscle tone normal throughout Sensory Exam: no sensory deficits noted Extrem General: normal to inspection, full ROM, capillary refill normal, no calf tenderness bilaterally and no edema Psych Appearance: grossly normal Mental Status: mental status grossly normal Speech and Movement: speech and movement normal Affect: normal affect
--- NOTE | 2020-09-22 10:45 | DI.CT_ITS ---
EXAM: CT CHEST PE CTA CLINICAL HISTORY: L sided back pain, sob, r/o PE. TECHNIQUE: Imaging Protocol: CT angiography of the chest was performed using pulmonary embolus chayo col. Multi planar reconstructions were performed. CONTRAST MATERIAL: Intravenous: Omnipaque 350 Contrast volume: 100 cc COMPARISON: CT CT NECK CHEST ABD PEL W from 04/11/2020 CR,XR XR PORTABLE CHEST AP from 09/22/2020 Chest x-ray 09/22/2020 was reviewed FINDINGS: CHEST: PULMONARY ARTERIES: There are no intraluminal filling defects to suggest acute pulmonary emboli. LUNGS: There is a now a unilateral moderate size left pleural effusion now evident which is associate d with volume loss in the left lower lobe segments. There is mild infiltrate above this level in the left lower lobe. There is relative sparing of the left upper lobe and lingular segment of left lung . There is no pleural effusion on the opposite-right side. Mild pleural based infiltrate is noted i n the medial basal segment of the right lower lobe. No significant focal findings in the trachea and mainstem bronchi. MEDIASTINUM: There is no hilar nor mediastinal adenopathy. CARDIAC: Heart size upper normal. There is mild thickening of the anterior pericardium to thickness of 9 millimeters.Caliber of the thoracic aorta is within normal limits. No evidence of aortic dissec tion. There is no evidence of shift of the interventricular septum. PARTIALLY VISUALIZED UPPERMOST ABDOMEN: No obvious findings OSSEOUS: No significant osseous lesions.. IMPRESSION: 1. No evidence of acute pulmonary emboli. 2. However, there is now a cyst unilateral moderate-sized left pleural effusion associated with left lower lobe volume loss and mild infiltrate in the left lower lobe above this left. No pleural effusi on on the opposite side. 3. There is no intrathoracic adenopathy 4. Small pericardial effusion. RADIATION DOSE DELIVERED: LINK-TO-SR Total DLP DATA REPOSITORY: All CT scans at this facility are submitted to the National Radiology Data Registry (NRDR) Dose Index Registry (DIR) with the [employer] (A[employer]). RADIATION OPTIMIZATION: All CT scans at this facility use at least one of these dose optimization te chniques: automated exposure control; mA and/or kV adjustment per patient size (includes targeted exa ms where dose is matched to clinical indication); or iterative reconstruction.
--- NOTE | 2020-09-22 10:45 | NUR.NOTE ---
Per Dr Ashwini quinn to access RCW port. Double port, pt states one port accessed at a time.
[2020-09-22] MEDS: Lidocaine 5% Patch 1 PATCH TP (10:59)
[2020-09-22 11:02] LABS: HGB 9.8 g/dL (13.5-17.5); MCH 31.6 pg (27.0-33.0); MCHC 33.8 % (32.0-36.0); MCV 93.5 fL (80-95); MPV 12.4 fL (8.0-11.0); Nucleated RBC 0 %; RDW 15.5 % (11.8-14.1); RDW-SD 53.3 fL
[2020-09-22] MEDS: Normal Saline 250 ML 500 ML IV ×2 (11:02→13:23)
[2020-09-22] MEDS: Normal Saline-STERILE FIELD 0.9% 10 ML SYR (11:06)
[2020-09-22 11:09] LABS: Lipase 53 U/L (73-393)
[2020-09-22] MEDS: Metoprolol 5 MG/5 ML VIAL IVP (11:09)
[2020-09-22 11:15] LABS: INR 1.1 (0.9-1.1); PTT Activated 54.7 sec (21.0-27.5); Prothrombin Time 11.4 sec (9.3-11.0)
--- NOTE | 2020-09-22 11:16 | NUR.NOTE ---
AFIB, rapid. no lower extremity edema. port R sc accessed with good blood return.
[2020-09-22 11:17] LABS: ALT 18 U/L (16-63); AST 9 U/L (15-37); Albumin 2.3 g/dL (3.4-5.0); Alkaline Phosphatase 90 U/L (46-116); Anion Gap 8.8 mmol/L (3-11); BUN 23 mg/dL (7-18); Bilirubin, Total 0.8 mg/dL (0.2-1.0); CO2 26.2 mmol/L (21.0-32.0); CREATININE 0.6 mg/dL (0.70-1.30); Calcium 8.6 mg/dL (8.5-10.1); Chloride 100 mmol/L (98-107); Glucose 118 mg/dL (74-106); Magnesium 1.4 mg/dL (1.8-2.4); Potassium 3.6 mmol/L (3.5-5.1); Sodium 135 mmol/L (136-145); Total Protein 5.7 g/dL (6.4-8.2); Troponin I < 0.05 ng/mL (<0.06)
[2020-09-22 11:26] LABS: Source Nasopharynx
[2020-09-22] MEDS: Albuterol/Ipratropium 3 ML UPD VIAL UPD (11:28)
[2020-09-22 11:30] LABS: Absolute Lymphocyte Count 0.02 10^3/uL (1.2-3.4); Absolute Monocyte Count 0.01 10^3/uL (0.1-0.8); Atypical Lymphocytes % 17; Diff Comment Manual Differential; Ovalocytes 2+
[2020-09-22 11:34] LABS: Platelet Count 87 10^3/uL (130-400)
[2020-09-22 11:35] LABS: WBC 0.07 10^3/uL (4.4-10.8)
[2020-09-22 11:36] LABS: Absolute Neutrophil Count 0.04 10^3/uL (1.2-6.7)
[2020-09-22] MEDS: MAGNESIUM SULFATE 2 GM/50 ML BAG IVPB (11:55)
[2020-09-22 12:05] LABS: COVID-19 PCR Negative (Negative); Influenza A PCR Negative (Negative); Influenza B PCR Negative (Negative); RSV PCR Negative (Negative)
--- NOTE | 2020-09-22 12:30 | DI.RAD_ITS ---
EXAM: XR PORTABLE CHEST AP CLINICAL HISTORY: assess for port. TECHNIQUE: 2D digital imaging was performed. COMPARISON: CR XR CHEST 2V PA LATERAL from 05/16/2020 FINDINGS: Distal tip of the right supraclinoid view in Port-A-Cath is at the SVC RA junction, unchanged. Heart size is upper normal mediastinum is not widened. The right lung is clear. There is some infil trate in the mid left lung field as well as left lower lobe and there is a moderate size left pleural effusion. Similar previous. There are surgical clips in the left axilla noted, also previously pre sent. IMPRESSION: Left lung infiltrate. Also moderate sized left pleural effusion. DATA REPOSITORY: RADIATION DOSE DELIVERED:
--- NOTE | 2020-09-22 12:58 | NUR.NOTE ---
patient has been in CT approx 35 mins, tech unable to confirm power port and had attempted IV x2 in L ac. went to CT and started 18G R AC x 1 attempt. pt voided in BR at CT and back to stretcher
--- NOTE | 2020-09-22 13:03 | DI.VRAD_ITS ---
PROCEDURE INFORMATION: Exam: XR Chest, 1 View Exam date and time: 09/22/2020 12:41 PM Age: 70 years old Clinical indication: Screening exam; Other screening TECHNIQUE: Imaging protocol: XR of the chest Views: 1 view. COMPARISON: CR XR CHEST 2V PA LATERAL 05/16/2020 12:38 PM FINDINGS: Tubes, catheters and devices: Indwelling right central venous catheter tip in SVC. Lungs: New alveolar infiltrate in the left mid and lower lung. Decrease in the previous left pleural effusion. Pleural spaces: Moderate left pleural effusion Heart/Mediastinum: Unremarkable. No cardiomegaly. Bones/joints: Degenerate arthritis in the shoulders and spine. Soft tissues: Surgical clips left axilla. IMPRESSION: 1. Infiltrate left mid and lower lung with moderate left pleural effusion. Dictated and Authenticated by: Bina Montiel MD. Ordering:LILIBETH Coates MD
[2020-09-22] MEDS: Normal Saline - Diluent 50 ML VIAL IV (13:12)
[2020-09-22] MEDS: Omnipaque 350 MG/ML 100 ML BTL IJ (13:12)
[2020-09-22] MEDS: Normal Saline Flush 10 ML SYR IVP ×3 (13:13→22:07)
--- NOTE | 2020-09-22 13:44 | DI.VRAD_ITS ---
PROCEDURE INFORMATION: Exam: CT Angiography Chest With Contrast Exam date and time: 09/22/2020 10:47 AM Age: 70 years old Clinical indication: Other: L sided back pain, SOB, R/O pe; Additional info: Cough, R/O pneumonia TECHNIQUE: Imaging protocol: Computed tomographic angiography of the chest with contrast. 3D rendering (Not supervised by radiologist): MIP and/or 3D reconstructed images were created by the technologist. Radiation optimization: All CT scans at this facility use at least one of these dose optimization techniques: automated exposure control; mA and/or kV adjustment per patient size (includes targeted exams where dose is matched to clinical indication); or iterative reconstruction. Contrast material: OMNIPAQUE 350; Contrast volume: 100 ml; Contrast route: INTRAVENOUS (IV); COMPARISON: CT NECK CHEST ABD PEL W 04/11/2020 1:53 PM FINDINGS: Pulmonary arteries: Normal. No pulmonary emboli. Aorta: Unremarkable. No aortic aneurysm. No aortic dissection. Lungs: New infiltrate with volume loss in the lower lobe posteriorly.. Stable tiny bilateral pulmonary nodules. Several which are calcified consistent with granulomata. Stable changes of emphysema. Pleural spaces: Moderate left pleural effusion has increased since 04/11/2020 Heart: Vascular calcifications including coronary artery calcifications. Indwelling central venous catheter with tip in SVC. Lymph nodes: The enlarged supraclavicular nodes seen on 04/11/2020 are not seen today. Significant interval decrease in the size of the previously enlarged mediastinal and left axillary lymph nodes. No enlarged lymph nodes. Kidneys and ureters: Interval decrease in the size of the lobulated left retroperitoneal soft tissue mass, posterior to left kidney. It measures approximately 4.6 by 2.3 cm in transverse and AP dimension today compared with 7.1 by 5.9 cm on 04/11/2020 exam. Bones/joints: Degenerative arthritis in the spine and shoulders. Old left rib fractures. Soft tissues: Surgical clips in the left axilla. IMPRESSION: 1. No pulmonary embolism identified. 2. Left lower lobe infiltrate and moderate left pleural effusion increased since 04/11/2020. 3. Decrease in size of left posterior renal mass and significant decrease in previously enlarged supraclavicular, mediastinal, left axillary retroperitoneal lymph nodes. Dictated and Authenticated by: Bina Montiel MD. Ordering:LILIBETH Coates MD
--- NOTE | 2020-09-22 13:51 | NUR.NOTE ---
Nursing Note: Shahida sister [phone]
[2020-09-22 14:12] LABS: Lactate 1.2 mmol/L (0.6-1.4)
[2020-09-22] MEDS: dilTIAZem 25 MG/5 ML VIAL 10 MG IVP (14:17)
--- NOTE | 2020-09-22 14:32 | NUR.NOTE ---
superintendent geophysical laboratory at bedside obtaining second set of blood cultures
[2020-09-22] MEDS: PIPERACILLIN/TAZO 3.375 GM in Normal Saline 50 ML IVPB ×2 (14:42→22:08)
--- NOTE | 2020-09-22 14:42 | NUR.NOTE ---
Piper/Tazo infusing in R AC 18 G and not port, peripheral IV option not displayed as option
--- NOTE | 2020-09-22 14:45 | NUR.NOTE ---
report given to Martha INGRAM. aware Vanco not yet administered, waiting on second BC.
--- NOTE | 2020-09-22 14:46 | NUR.NOTE ---
mag and piper/tazo infusing on transport to floor
--- NOTE | 2020-09-22 15:42 | HPE_ITS ---
Date of service: 09/22/20 Time of Service: 15:42 Assessment and Plan Assessment and plan (1) Pneumonia: Status: Acute Assessment and plan: LLL infiltrate. Neutropenic. No fever. Broad coverage initiated with Zosyn and Vanc.; [facility] Heme/onc consulted by ED provider and agrees with plan. Blood culture obtained. Qualifiers: Pneumonia type: due to unspecified organism (2) Severe neutropenia: Status: Acute Assessment and plan: WBC count of 0.07. ANC 40. Monitor. Neutorpenic precautions. (3) Atrial fibrillation with rapid ventricular response: Status: Acute Assessment and plan: Presented with HR of 135. Given a dose of IV lopressor 5mg with HR decreasing into the 110-120's. Given a dose of IV diltiazem 10mg. HR in low 100's. PRN IV lopressor for HR > 110. Telemetry. Cont Eliquis. Cont home oral metoprolol in AM (4) Pleural effusion on left: Status: Acute Assessment and plan: Noted to be increased since 04/11/2020. Not requiring suppelmental O2. No plan for thoracentesis at this time; risks of bleeding d/t anticoagulation and low platelets. (5) B-cell lymphoma: Status: Acute Assessment and plan: He has finished his scheduled chemotx. PET scan, per pt. showed resolution. Qualifiers: B-cell lymphoma type: unspecified B-cell Lymphoma site: multiple regions Qualified Code(s): C85.18 - Unspecified B-cell lymphoma, lymph nodes of multiple sites (6) Weight loss: Status: Acute Assessment and plan: Poor appetite for appx 2 weeks. Monitor intake and initiate appetite stimulant such as Marinol if needed. (7) Pancytopenia: Status: Acute Assessment and plan: Chemotx related. Hgb of 9.8. Platelets 87. No active bleeding reported or noted. Monitor. History of Present Illness History of Present Illness Chief Complaint: Shortness of air, Left back pain Narrative: This is a 70 yo male with B-cell lymphoma dx now s/p his last chemotherapy tx 8 days ago, Afib, left pleural effusion. He presented with several day h/o shortness of air, productive cough/clear sputum and L-sided back pain. He endorses a decrease in appetite for several weeks. No fever, N/V/diarrhea. His atrial fibrillation dx was recent; started on metoprolol and Eliquis. He denies noncompliance with meds. + dx of thrush and was previously on diflucan but had to stop d/t a drug trial he was on. Nystatin was then initiated but it has not worked as well. He is no longer in the drug trial. Review of Systems All systems reviewed & are unremarkable except as noted in HPI and below PFSH Medical History Hypertension, essential, benign (02/24/18) Knee pain suspicious for meniscal injury/degeneration Overweight (03/12/16) SOB (shortness of breath) Tobacco abuse (03/12/16) Weight loss -30 lbs Surgical History H/O lymph node biopsy Family History Mother , AGE 97 Breast cancer Father , AGE 63 Liver disease Cirrhosis Alcohol abuse Sister No problems noted. Sister Lymphoma Son No problems noted. Son No problems noted. Social History Smoking/Tobacco Use Status: Current-Occasional Tobacco Type: cigarettes Years smoked: 40 Tobacco: How many years used: 40 Quit status: considering quitting Second Hand Exposure: Yes Smoking risk assessment performed?: Yes Alcohol Intake: former Drug use: Daily Substance use type: marijuana Details: Pt states he has decreased smoking from 1/2ppd to 2-3 cig/day, states has not drank etoh +6 wks, marijuana 3-4xwk. Caregiver/Support person: No Housing: house Communication Needs: None Do you need help understanding health information?: Rarely current occupation: CONTRACTOR Pets and animals: No Sexually active: No Do you think of yourself as: straight/heterosexual Current gender identity: male What is your relationship status?: How often do you talk on the phone with friends or family?: once per week How often do you get together with friends or relatives?: once per week How often do you attend mosque or rastafarian services?: 1-3 times per year Do you belong to any clubs or organized social groups?: yes Panel score (0-1 are the most socially isolated patients): 1 What type of physical activity do you participate in: walking Duration: 15-30 minutes/day Frequency: 3-4 times per week Petrona/Christian: None Special petrona needs: No Seatbelt use: always Helmet use: No Drive intox or ride w/intox bus driver supervisor: No Do you feel safe at home: Yes Do you feel safe in your relationship?: Yes Meds Home Medications and Allergies Home Medications Medication Instructions Recorded Confirmed Type metoprolol succinate 100 mg 100 mg PO DAILY #90 tab 07/17/20 09/22/20 Rx tablet,extended release 24 hr apixaban [Eliquis] 5 mg PO BID 09/22/20 09/22/20 History nystatin 100,000 unit PO QID 09/22/20 09/22/20 History prochlorperazine maleate 10 mg PO BID PRN 09/22/20 09/22/20 History [Compazine] Allergies Allergy/AdvReac Type Severity Reaction Status Date / Time ibuprofen Allergy Intermediate Hives Verified 09/22/20 11:54 naproxen [From Aleve] AdvReac Intermediate dizzy, Verified 09/22/20 11:56 light headed. Exam Narrative Exam Narrative: Lying in bed. Mask is on. Const General: cooperative and no acute distress Nutritional Appearance: average body habitus Orientation: alert and oriented x3 Eyes Sclera: sclerae normal Pupils: PERRL Resp Effort & Inspection: normal respiratory effort Auscultation: clear to auscultation bilaterally and diminished lung sounds on the left in the lower lung daugherty Cardio Other: Irreg Irreg; tachy GI Palpation: soft and nontender Skin General skin exam: ecchymosis (scattered on exts.) Extrem General: no pedal edema and no calf tenderness Psych Appearance: grossly normal Mental Status: mental status grossly normal Affect: normal affect Results Labs Result diagrams: 09/22/20 10:50 09/22/20 10:50 Labs: Laboratory Results - last 24 hr 09/22/20 09/22/20 09/22/20 10:50 10:50 10:50 WBC 0.07 L* RBC 3.10 L Hgb 9.8 L Hct 29.0 L MCV 93.5 MCH 31.6 MCHC 33.8 RDW 15.5 H Plt Count 87 L MPV 12.4 H Immature Gran % 0.0 Neutrophils % 58.0 Lymphocytes % 17.0 Atypical Lymphs % 17 Monocytes % 8.0 Eosinophils % 0.0 Basophils % 0.0 Nucleated RBC % 0 Absolute Neutrophils 0.04 L* Absolute Lymphocytes 0.02 L Absolute Monocytes 0.01 L Absolute Eosinophils 0.00 Absolute Basophils 0.00 RBC Morphology See below Ovalocytes 2+ PT 11.4 H INR 1.1 APTT 54.7 H VBG Lactate Sodium 135 L Potassium 3.6 Chloride 100 Carbon Dioxide 26.2 Anion Gap 8.8 BUN 23 H Creatinine 0.6 L Estimated GFR/1.73 m2 >= 60.00 Glucose 118 H Calcium 8.6 Magnesium 1.4 L Total Bilirubin 0.8 AST 9 L ALT 18 Alkaline Phosphatase 90 Troponin I < 0.05 Total Protein 5.7 L Albumin 2.3 L Lipase COVID-19 Source SARS-CoV-2 (PCR) Influenza Type A (PCR) Influenza Type B (PCR) RSV (PCR) 09/22/20 09/22/20 09/22/20 10:50 11:24 14:06 WBC RBC Hgb Hct MCV MCH MCHC RDW Plt Count MPV Immature Gran % Neutrophils % Lymphocytes % Atypical Lymphs % Monocytes % Eosinophils % Basophils % Nucleated RBC % Absolute Neutrophils Absolute Lymphocytes Absolute Monocytes Absolute Eosinophils Absolute Basophils RBC Morphology Ovalocytes PT INR APTT VBG Lactate 1.2 Sodium Potassium Chloride Carbon Dioxide Anion Gap BUN Creatinine Estimated GFR/1.73 m2 Glucose Calcium Magnesium Total Bilirubin AST ALT Alkaline Phosphatase Troponin I Total Protein Albumin Lipase 53 COVID-19 Source Nasopharynx SARS-CoV-2 (PCR) Negative Influenza Type A (PCR) Negative Influenza Type B (PCR) Negative RSV (PCR) Negative Last Vital Signs Temp 36.4 C L 09/22/20 13:24 Pulse 107 H 09/22/20 14:45 Resp 18 09/22/20 14:45 BP 93/69 L 09/22/20 14:45 Pulse Ox 95 09/22/20 14:45 COVID-19 Screening Have you, or household traveled for leisure in last 14 days?: No Had IN PERSON contact w/suspected or confirmed C-19 person: No
[2020-09-22] MEDS: VANCOMYCIN/WATER (PEG) 1.25 GM/250 ML BAG IVPB (15:50)
[2020-09-22] MEDS: Normal Saline 500 ML 30 ML IV (15:54)
[2020-09-22] MEDS: Acetaminophen 325 MG TAB 650 MG PO (15:54)
[2020-09-22] MEDS: Apixaban 5 MG TAB PO (19:57)
[2020-09-23] VITALS (77 sets, daily range): BP systolic 90–105; BP diastolic 59–95; PULSE 104–173; RESP 18–20; TEMP 36.2–38; O2SAT 93–97
[2020-09-23] MEDS: Normal Saline Flush 10 ML SYR IVP ×6 (00:30→21:13)
[2020-09-23] MEDS: VANCOMYCIN/WATER (PEG) 1 GM/200 ML BAG IV ×4 (00:30→23:00)
[2020-09-23] MEDS: MORPHine 4 MG/ML SYR IVP ×3 (03:26→22:21)
[2020-09-23] MEDS: PIPERACILLIN/TAZO 3.375 GM in Normal Saline 50 ML IVPB ×4 (03:27→21:15)
[2020-09-23 06:56] LABS: Abs Immature Grans 0.01 10^3/uL (0.0-0.06); Absolute Monocyte Count 0.03 10^3/uL (0.1-0.8); HCT 24.7 % (40.0-50.0); HGB 8.4 g/dL (13.5-17.5); MCH 31.2 pg (27.0-33.0); MCV 91.8 fL (80-95); MPV 12.6 fL (8.0-11.0); Nucleated RBC 0 %; RBC 2.69 10^6/uL (4.36-5.78); RDW 15.6 % (11.8-14.1); RDW-SD 51.5 fL
--- NOTE | 2020-09-23 07:00 | NUR.NOTE ---
Nursing Note: At 0645 hrs., ICU staff called for reading on tele of HR of 140, checked and pt, has no discomfort, assisted to bathroom and voided. MD called by Charge nurse and ordered to give metoprolol CR po scheduled at 08:30. Pt tolerated it well, denied of dizziness and chest pain. Call lights at reach.
[2020-09-23] MEDS: Metoprolol CR 100 MG TABCR PO (07:10)
[2020-09-23 07:16] LABS: Anion Gap 10.1 mmol/L (3-11); BUN 20 mg/dL (7-18); CO2 22.9 mmol/L (21.0-32.0); CREATININE 0.6 mg/dL (0.70-1.30); Chloride 100 mmol/L (98-107); Glucose 86 mg/dL (74-106); Magnesium 1.5 mg/dL (1.8-2.4); Potassium 3.3 mmol/L (3.5-5.1); Sodium 133 mmol/L (136-145)
[2020-09-23] MEDS: Fluconazole 100 MG TAB 200 MG PO (07:57)
[2020-09-23] MEDS: Allopurinol 300 MG TAB PO (07:57)
[2020-09-23] MEDS: Cholecalciferol (Vitamin D3) 1,000 UNIT TAB 5000 UNITS JT (07:58)
[2020-09-23] MEDS: Apixaban 5 MG TAB PO ×2 (07:58→19:56)
[2020-09-23 08:33] LABS: Bands % 5
[2020-09-23 08:34] LABS: Absolute Eosinophil Count 0.01 10^3/uL (0.0-0.7); Absolute Lymphocyte Count 0.04 10^3/uL (1.2-3.4); Atypical Lymphocytes % 2; Myelocytes % 4
[2020-09-23 08:36] LABS: Diff Comment Manual Differential; RBC Morphology Normal
[2020-09-23 08:39] LABS: WBC 0.12 10^3/uL (4.4-10.8)
[2020-09-23 08:40] LABS: Absolute Neutrophil Count 0.03 10^3/uL (1.2-6.7)
--- NOTE | 2020-09-23 09:41 | INITIAL_ITS ---
- If Service Date Differs Date of service: 09/23/20 Time of Service: 09:41 Care Management Initial Assess REASON FOR HOSPITALIZATION:: Pneumonia PAST MEDICAL HISTORY/PAST SURGICAL HISTORY:: Medical History . Hypertension, essential, benign (02/24/18). Knee pain. suspicious for meniscal injury/degeneration. Overweight (03/12/16). SOB (shortness of breath). Tobacco abuse (03/12/16). Weight loss. -30 lbs. Surgical History . H/O lymph node biopsy PREVIOUS FUNCTIONAL STATUS/SOCIAL/FAMILY SUPPORTS:: Ben lives alone in a single family home in [place], [place], although his sister from [place] has been staying with him since March to help care for him. Ben has 3 children but only his youngest son lives locally. His name is Kvng and Ben describes them as very close and states that Kvng is very supportive. Ben is independent with care and activities and receives no community services. CURRENT FUNCTIONAL STATUS:: Ben was lying in bed when CM came to meet with him but sat up when the conversation began. He was pleasant and answered questions openly. Ben has been undergoing cancer treatment and received his last dose of chemotherapy on 09/14/20. He shared that he is really glad that the treatments are over. As a result of the Chemotherapy Ben is severely immunosuppressed and is on precautions. 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 ADVANCE DIRECTIVES:: None on file at [facility] but states he has them. Has patient been provided with info about the portal/API?: Yes Did the patient sign up for the portal?: No CODE STATUS:: Full Code INSURANCE COVERAGE / FINANCIAL ISSUES:: Medicare CURRENT HOME/COMMUNITY SERVICES/EQUIPMENT:: none PRIMARY CARE PHYSICIAN:: Socrates Tracey POTENTIAL DISCHARGE NEEDS:: Follow up with PCP and discharge plan of care PATIENT/FAMILY EDUCATION NEEDS:: Discharge plan, limitations, follow up plan, Ask Me Three TRANSPORTATION:: via private vehicle with family PLAN:: Ben will likely be discharged home with no new services. He will follow up with his PCP, Oncology team and plan of care and transport with family. CM will continue to support Ben and assess for discharge planning concerns.
[2020-09-23] MEDS: Potassium Chloride 20 MEQ TABCR PO ×2 (09:56→19:55)
--- NOTE | 2020-09-23 11:25 | PHA.REVIEW ---
Pharmacy Admission Review - Admission Clinical Review (Last Reviewed 09/22/20 @ 15:47 by Jose Stevenson MD) Pancytopenia (Acute) Pneumonia (Acute) Severe neutropenia (Acute) Atrial fibrillation with rapid ventricular response (Acute) Pleural effusion on left (Acute) B-cell lymphoma (Acute) Weight loss (Acute) ibuprofen Allergy (Intermediate, Verified 09/22/20 11:54) Hives naproxen [From Aleve] Adverse Reaction (Intermediate, Verified 09/22/20 11:56) dizzy, light headed. Height 5 ft 9 in Weight 70.307 kg CAP, Neutropenia - Comments Comments/Follow Ups: Febrile, BP's soft, HR>100 (Asymptomatic), Back pain /, ANC 0.03, WBC up 0.12, H/H down 8.4/24.7-follow closely for S/S bleeding as he's on Apixiban for A-fib, Plt 64. Blood cultures pending, on Zosyn/Vanco. Vanco trough 09/24/20 in the morning-will add with morning labs. Last Chemo was 9 days ago, PET scan clear. MD consulted with Oncologist, following labs closely. Weight loss, has little appetite. Watch for repeat chest xray for signs of improvement - Renal Dosing Renal Dosing: BUN 20 mg/dL (7-18) H 09/23/20 06:12 Creatinine 0.6 mg/dL (0.70-1.30) L 09/23/20 06:12 Medications needing adjustments: Reviewed (CrCl~84ml/min) - Anticoagulation Anticoagulation: Hgb 8.4 g/dL (13.5-17.5) L 09/23/20 06:12 Hct 24.7 % (40.0-50.0) L 09/23/20 06:12 Plt Count 64 10^3/uL (130-400) L 09/23/20 06:12 INR 1.1 (0.9-1.1) 09/22/20 10:50 Creatinine 0.6 mg/dL (0.70-1.30) L 09/23/20 06:12 Therapeutic Anticoagulation: Reviewed Medications: Apixaban (A-fib 5mg po BID) - Opiate Usage Evaluate Pain Scale/Pains Meds: Reviewed (MS IVP prn, used only 1 dose) Scheduled Bowel Reg ordered if on Opiates?: No (prn Miralax) - Relevant Labs Sodium 133 mmol/L (136-145) L 09/23/20 06:12 Potassium 3.3 mmol/L (3.5-5.1) L 09/23/20 06:12 Chloride 100 mmol/L (98-107) 09/23/20 06:12 Magnesium 1.5 mg/dL (1.8-2.4) L 09/23/20 06:12 Electrolytes, C-Reactive P, ESR: Reviewed (Mag and Potassium being repleted,) - DM Control DM Control: Glucose 86 mg/dL (74-106) 09/23/20 06:12 Insulin Dosing: N/A - Heart Failure/NE Heart Failure/NE: Troponin I < 0.05 ng/mL (<0.06) 09/22/20 10:50 EF%, LILIYA's, B-Blockers, Diuretics: Reviewed (Toprol, Metoprolol iVP prn) - BP Control BP Control: Blood Pressure 92/61 Blood Pressure 103/73 Blood Pressure 99/60 Blood Pressure 105/68 - Qtc Review If Elevated: Reviewed (QTC 426 A-fib) - IV to PO Switch IV Medications: Reviewed (Antibiotics) - Home Meds Relevent Home Meds Not ordered & why?: Allopurinol, ASA, Nystatin S/S-pt not currently taking - Current meds Current Medication Order Review: Reviewed (Fluconazole is an older med on home med list) Antibiotic Activity - Pharmacy Antibiotic Review Pharmacy Antibiotic Activity: C/S review ( pending, Zosyn/Vanco for Comm.Acq.Pneumonia) - Antibiotic Information Antibiotic Review Info: pending, Zosyn/Vanco day#2 for Comm.Acq.Pneumonia
--- NOTE | 2020-09-23 12:19 | W.PM.PROGNOT ---
Date of Service Date of service: 09/23/20 Time of Service: 10:20 Assessment and Plan Assessment and plan (1) Pancytopenia: Status: Acute Assessment and plan: WBC count modestly improving; 0.07 >> 0.12. However ANC has decreased. Monitor Related to chemotx; had last round 9 days ago (2) Atrial fibrillation with rapid ventricular response: Status: Acute Assessment and plan: Cont home metoprolol CR 100mg daily with prn IV lopressor for HR >110. SBP has been consistently in the 90's to low 100's so increasing oral metoprolol would need to be done cautiously. Cont Apixiban. (3) B-cell lymphoma: Status: Acute Assessment and plan: He has finished his scheduled chemotx. PET scan, per pt. showed resolution. Qualifiers: B-cell lymphoma type: unspecified B-cell Lymphoma site: multiple regions Qualified Code(s): C85.18 - Unspecified B-cell lymphoma, lymph nodes of multiple sites (4) Pneumonia: Status: Acute Assessment and plan: Tm of 38.2. T this AM of 38. No chills/rigors/diaphoreses. Pain in left lower back present but marginally improved. Cont Zosyn and Vanc. Blood culture pending. Qualifiers: Pneumonia type: due to unspecified organism (5) Pleural effusion on left: Status: Acute Assessment and plan: Had increased since imaging of 04/11/2020. RA O2 saturations in the mid 90's. Repeat CXR if condition doesn't cont to improve. Subjective Subjective Patient reports: no new complaints, feels better, still having pain (Left lower back) and fever (Temp of 38 this AM Tm 38.2); denies nausea and vomiting Exam Const General: cooperative and no acute distress Nutritional Appearance: average body habitus Orientation: alert and oriented x3 Neck Neck: normal visual inspection, full ROM and no JVD Resp Effort & Inspection: normal respiratory effort Auscultation: clear to auscultation bilaterally and diminished lung sounds on the left in the lower lung daugherty Cardio Other: Irreg Irreg. GI Palpation: soft and nontender Extrem General: no pedal edema and no calf tenderness Objective Last Vital Signs Temp 38.0 C H 09/23/20 11:17 Pulse 108 H 09/23/20 11:17 Resp 18 09/23/20 11:17 BP 92/61 L 09/23/20 11:17 Pulse Ox 95 09/23/20 11:17 Laboratory Results - last 24 hr 09/22/20 09/23/20 09/23/20 14:06 06:12 06:12 WBC 0.12 L* D RBC 2.69 L Hgb 8.4 L Hct 24.7 L MCV 91.8 MCH 31.2 MCHC 34.0 RDW 15.6 H Plt Count 64 L MPV 12.6 H Immature Gran % See Differential Neutrophils % 23.0 Band Neutrophils % 5 Lymphocytes % 34.0 Atypical Lymphs % 2 Monocytes % 22.0 Eosinophils % 6.0 Basophils % 4.0 Myelocytes % 4 Nucleated RBC % 0 Absolute Neutrophils 0.03 L* Absolute Lymphocytes 0.04 L Absolute Monocytes 0.03 L Absolute Eosinophils 0.01 Absolute Basophils 0.00 RBC Morphology Normal VBG Lactate 1.2 Sodium 133 L Potassium 3.3 L Chloride 100 Carbon Dioxide 22.9 Anion Gap 10.1 BUN 20 H Creatinine 0.6 L Estimated GFR/1.73 m2 >= 60.00 Glucose 86 Calcium 8.0 L Magnesium 1.5 L
[2020-09-23] MEDS: Digoxin 0.125 MG TAB 0.25 MG PO (14:25)
[2020-09-23] MEDS: Prochlorperazine 10 MG TAB PO (18:26)
[2020-09-23] MEDS: Digoxin 0.125 MG TAB PO ×2 (19:55→23:55)
[2020-09-23] MEDS: Normal Saline 1,000 ML 125 ML IV (21:14)
[2020-09-23] MEDS: Normal Saline 1,000 ML 1000 ML IV ×2 (21:14→23:56)
[2020-09-23] MEDS: MAGNESIUM SULFATE 4 GM/100 ML BAG IVPB (21:15)
[2020-09-23] MEDS: Acetaminophen 325 MG TAB 650 MG PO (22:20)
[2020-09-24] VITALS (22 sets, daily range): BP systolic 90–125; BP diastolic 57–84; PULSE 105–129; RESP 17–22; TEMP 36.4–37; O2SAT 94–100
[2020-09-24 00:21] LABS: Lactate 0.9 mmol/L (0.6-1.4)
[2020-09-24] MEDS: PIPERACILLIN/TAZO 3.375 GM in Normal Saline 50 ML IVPB ×4 (03:46→21:30)
[2020-09-24 07:29] LABS: HCT 24.4 % (40.0-50.0); HGB 8.2 g/dL (13.5-17.5); MCH 31.8 pg (27.0-33.0); MCHC 33.6 % (32.0-36.0); MCV 94.6 fL (80-95); MPV 12.7 fL (8.0-11.0); Nucleated RBC 0 %; RBC 2.58 10^6/uL (4.36-5.78); RDW 15.5 % (11.8-14.1); RDW-SD 53.5 fL
[2020-09-24 07:36] LABS: Anion Gap 9.9 mmol/L (3-11); BUN 13 mg/dL (7-18); CO2 24.1 mmol/L (21.0-32.0); CREATININE 0.7 mg/dL (0.70-1.30); Calcium 7.7 mg/dL (8.5-10.1); Chloride 99 mmol/L (98-107); Glucose 87 mg/dL (74-106); Potassium 3.3 mmol/L (3.5-5.1); Sodium 133 mmol/L (136-145)
[2020-09-24 07:42] LABS: Vancomycin, Trough 14.7 ug/mL (10.0-20.0)
[2020-09-24] MEDS: VANCOMYCIN/WATER (PEG) 1 GM/200 ML BAG IV ×3 (08:09→23:31)
[2020-09-24] MEDS: Cholecalciferol (Vitamin D3) 1,000 UNIT TAB 5000 UNITS JT (08:10)
[2020-09-24] MEDS: Metoprolol CR 100 MG TABCR PO (08:11)
[2020-09-24] MEDS: Digoxin 0.125 MG TAB PO (08:11)
[2020-09-24] MEDS: Fluconazole 100 MG TAB 200 MG PO (08:11)
[2020-09-24] MEDS: Apixaban 5 MG TAB PO ×2 (08:12→19:58)
[2020-09-24] MEDS: Magnesium Oxide 400 MG TAB PO (08:12)
[2020-09-24] MEDS: Potassium Chloride 20 MEQ TABCR PO ×2 (08:12→19:58)
[2020-09-24 08:24] LABS: WBC 0.44 10^3/uL (4.4-10.8)
[2020-09-24 08:25] LABS: Absolute Neutrophil Count 0.31 10^3/uL (1.2-6.7); Bands % 40
[2020-09-24 08:26] LABS: Absolute Basophil Count 0.01 10^3/uL (0.0-0.2); Absolute Lymphocyte Count 0.05 10^3/uL (1.2-3.4); Absolute Monocyte Count 0.04 10^3/uL (0.1-0.8)
[2020-09-24 08:29] LABS: Platelet Count 50 10^3/uL (130-400)
[2020-09-24 08:30] LABS: Diff Comment Manual Differential; Metamyelocytes % 4; Myelocytes % 2
[2020-09-24 08:31] LABS: Poikilocytes 1+
[2020-09-24] MEDS: Metoprolol 5 MG/5 ML VIAL IVP (09:40)
[2020-09-24] MEDS: MORPHine 4 MG/ML SYR IVP ×3 (09:57→21:37)
[2020-09-24] MEDS: Normal Saline Flush 10 ML SYR IVP (09:58)
--- NOTE | 2020-09-24 10:05 | PGE_ITS ---
Date of Service Date of service: 09/24/20 Time of Service: 09:05 Assessment and Plan Assessment and plan (1) Pancytopenia: Status: Acute Assessment and plan: WBC count improved to 0.44 with ANC improved to 310 Platelets lower at 50. No overt bleeding noted. Hgb 9.8 > 8.4 > 8.2. May have dilutional influence after receiving IV NS bolus overnight. Monitor. (2) Pneumonia: Status: Acute Assessment and plan: WBC count improving. Tm was 38 yesterday; no elevated temp since then. Pleurisy is improving; using Morphine 4mg prn springly with good effect. Repeat CXR to monitor the L pleural effusion. Qualifiers: Pneumonia type: due to unspecified organism (3) Atrial fibrillation with rapid ventricular response: Status: Acute Assessment and plan: May have been driven by hypomag and hypokalemia; repleting. Also given IV fluid bolus overnight. Load with oral digoxin overnight; total of .5mg Consulted cardiology. (4) B-cell lymphoma: Status: Acute Assessment and plan: Spoke with the nurse specialist from [facility] where he receives his treatment. She will relay his current information to his oncologist. Qualifiers: B-cell lymphoma type: unspecified B-cell Lymphoma site: multiple regions Qualified Code(s): C85.18 - Unspecified B-cell lymphoma, lymph nodes of multiple sites Subjective Subjective Patient reports: no new complaints, feels better, pain is less (Left lower back. Pain especially with deep breath or cough.) and afebrile (Tm of 38 yesterday at 11:17 AM); denies diarrhea, nausea, vomiting and shortness of breath Interval history since last seen: No CP. Exam Const General: cooperative and no acute distress Nutritional Appearance: average body habitus Orientation: alert and oriented x3 Resp Effort & Inspection: normal respiratory effort Auscultation: clear to auscultation bilaterally and diminished lung sounds on the left in the lower lung daugherty Cardio Other: Irreg Irreg GI Palpation: soft and nontender Extrem General: no pedal edema and no calf tenderness Objective Last Vital Signs Temp 36.7 C 09/24/20 07:13 Pulse 125 H 09/24/20 09:40 Resp 20 09/24/20 07:13 BP 125/84 09/24/20 09:40 Pulse Ox 95 09/24/20 07:13 Laboratory Results - last 24 hr 09/23/20 09/24/20 09/24/20 00:15 06:20 07:00 WBC 0.44 L* D RBC 2.58 L Hgb 8.2 L Hct 24.4 L MCV 94.6 MCH 31.8 MCHC 33.6 RDW 15.5 H Plt Count 50 L MPV 12.7 H Immature Gran % See Differential Neutrophils % 30.0 Band Neutrophils % 40 Lymphocytes % 12.0 Monocytes % 10.0 Eosinophils % 0.0 Basophils % 2.0 Metamyelocytes % 4 Myelocytes % 2 Nucleated RBC % 0 Absolute Neutrophils 0.31 L* Absolute Lymphocytes 0.05 L Absolute Monocytes 0.04 L Absolute Eosinophils 0.00 Absolute Basophils 0.01 RBC Morphology See below Poikilocytosis 1+ VBG Lactate 0.9 Sodium 133 L Potassium 3.3 L Chloride 99 Carbon Dioxide 24.1 Anion Gap 9.9 BUN 13 D Creatinine 0.7 Estimated GFR/1.73 m2 >= 60.00 Glucose 87 Calcium 7.7 L Vancomycin Trough 09/24/20 07:00 WBC RBC Hgb Hct MCV MCH MCHC RDW Plt Count MPV Immature Gran % Neutrophils % Band Neutrophils % Lymphocytes % Monocytes % Eosinophils % Basophils % Metamyelocytes % Myelocytes % Nucleated RBC % Absolute Neutrophils Absolute Lymphocytes Absolute Monocytes Absolute Eosinophils Absolute Basophils RBC Morphology Poikilocytosis VBG Lactate Sodium Potassium Chloride Carbon Dioxide Anion Gap BUN Creatinine Estimated GFR/1.73 m2 Glucose Calcium Vancomycin Trough 14.7
[2020-09-24] MEDS: POTASSIUM CHLORIDE 10 MEQ/100 ML BAG 100 MEQ IVPB ×2 (10:17→11:37)
--- NOTE | 2020-09-24 10:57 | PDOC.CMPRO ---
- If Service Date Differs Date of service: 09/24/20 Time of Service: 10:57 Care Management Progress Note S/O:Ben was sitting up in bed when CM met with him; he was just finishing his lunch. Ben stated that he is feeling better but is not in any mcnulty to go home. He stated that he would not be doing anything different at home and understands that with his low blood count, treating his infection is important. While JUAN was talking with Ben, Dr. Suárez from cardiology came to see him. He reassured Ben that atrial fibrillation is quite common at his age and that as long as he is not symptomatic, it is not necessary to try to convert it back to a regular rhythm. Dr. Suárez stated that the goal would be to keep his heart rate under 110. Ben shared that he felt a lot better after hearing what Dr. Suárez had to say. A: Ben is a pleasant 70 year old gentleman admitted on 09/22/20 with Community acquired pneumonia and neutropenia P:Ben will likely be discharged home with no new services. His sister is staying with him and will provide assistance as needed. He will follow up with his PCP, Oncology team and plan of care and transport with family. CM will continue to support Ben and assess for discharge planning concerns.
--- NOTE | 2020-09-24 10:59 | W.CARDCONSUL ---
Date of service: 09/24/20 Time of Service: 11:00 Assessment and Plan Assessment and plan (1) Atrial fibrillation with rapid ventricular response: Status: Acute (2) Severe neutropenia: Status: Acute (3) Pleural effusion on left: Status: Acute Assessment and plan: 1. Atrial fibrillation in the setting of ongoing chemotherapy and pleural effusion plus/minus pneumonia. Is a little bit unclear as whether or not the symptoms has been having recently could be attributed to the A. fib (as he was previously asymptomatic before) or possibly the pleural effusion. He has received broad-spectrum antibiotics given his significant pancytopenia and presumed pneumonia. He says he never had any symptoms of A. fib in the past but has been told that his heart bounces all over the place. He has had reasonable rate control now on diltiazem and metoprolol. He has been given digoxin. Review of his telemetry shows rates mostly in the 110s and up to 120. He has not been up and moving much. ?Continue dual AV anne blocking agents, metoprolol and diltiazem. ?Continue digoxin. ?I do not think he needs any further imaging at this point as his last echocardiogram was not that long ago. ?I do not think there is much indication for cardioversion and/or rhythm control given the ongoing insult of chemotherapy and low likelihood of keeping him in normal sinus rhythm. In addition the significant side effects and drug interactions of antiarrhythmics would make it a challenge in the world of chemotherapy. ?Should follow up with Dr. Villagran in the next month or 2 after discharge. History of Present Illness History of Present Illness Chief Complaint: AF RVR Narrative: Mr Dunham is a 70-year-old male with past medical history significant for recently diagnosed atrial fibrillation with RVR as well as DLBCL who presented with shortness of breath and pleuritic chest pain. He had no fever nausea vomiting or diarrhea but he was found to be severely neutropenic secondary to chemotherapy that last occurred 8 days ago. He was given broad-spectrum antibiotics. He was previously seen and is followed by my colleague Dr. Villagran in [place] who saw him in July for A. fib with RVR. At that time he had an echocardiogram with normal ejection fraction as well as normal RV function and mild AI. At that time he had his metoprolol increased to 100 mg daily and continued on Eliquis. Per their discussion in the note he was not particularly symptomatic and wanted to continue to pursue chemotherapy. In light of that, they elected to pursue rate control rather than a rhythm control strategy. Review of Systems All systems reviewed & are unremarkable except as noted in HPI and below PFSH Medical History Hypertension, essential, benign (02/24/18) Knee pain suspicious for meniscal injury/degeneration Overweight (03/12/16) SOB (shortness of breath) Tobacco abuse (03/12/16) Weight loss -30 lbs Surgical History H/O lymph node biopsy Family History Mother , AGE 97 Breast cancer Father , AGE 63 Liver disease Cirrhosis Alcohol abuse Sister No problems noted. Sister Lymphoma Son No problems noted. Son No problems noted. Social History Smoking/Tobacco Use Status: Current-Occasional Tobacco Type: cigarettes Years smoked: 40 Tobacco: How many years used: 40 Quit status: considering quitting Second Hand Exposure: Yes Smoking risk assessment performed?: Yes Alcohol Intake: former Drug use: Daily Substance use type: marijuana Details: Pt states he has decreased smoking from 1/2ppd to 2-3 cig/day, states has not drank etoh +6 wks, marijuana 3-4xwk. Caregiver/Support person: No Housing: house Communication Needs: None Do you need help understanding health information?: Rarely current occupation: CONTRACTOR Pets and animals: No Sexually active: No Do you think of yourself as: straight/heterosexual Current gender identity: male What is your relationship status?: How often do you talk on the phone with friends or family?: once per week How often do you get together with friends or relatives?: once per week How often do you attend nondenominational or holiness services?: 1-3 times per year Do you belong to any clubs or organized social groups?: yes Panel score (0-1 are the most socially isolated patients): 1 What type of physical activity do you participate in: walking Duration: 15-30 minutes/day Frequency: 3-4 times per week Petrona/Roman Catholic: None Special petrona needs: No Seatbelt use: always Helmet use: No Drive intox or ride w/intox [place] driver: No Do you feel safe at home: Yes Do you feel safe in your relationship?: Yes Exam Const General: comfortable and no acute distress HENNC Head: normocephalic and atraumatic Eyes General: appearance normal, both eyes and all related structures Resp Effort & Inspection: normal respiratory effort Auscultation: clear to auscultation bilaterally Cardio Jugular venous pressure: no JVD Palpation: normal PMI Rate: tachycardic Rhythm: abnormal rhythm Heart Sounds: S1 normal and S2 normal (No Murmurs, Rubs or Gallops) GI Palpation: soft Auscultation: normoactive bowel sounds Skin General skin exam: no rashes or lesions noted Extrem General: normal to inspection and no clubbing, cyanosis or edema Psych Appearance: grossly normal Results Last Vital Signs Temp 36.7 C 09/24/20 07:13 Pulse 125 H 09/24/20 09:40 Resp 20 09/24/20 07:13 BP 125/84 09/24/20 09:40 Pulse Ox 95 09/24/20 07:13 Labs Result diagrams: 09/24/20 06:20 09/24/20 07:00 Labs: Laboratory Results - last 24 hr 09/23/20 09/24/20 09/24/20 00:15 06:20 07:00 WBC 0.44 L* D RBC 2.58 L Hgb 8.2 L Hct 24.4 L MCV 94.6 MCH 31.8 MCHC 33.6 RDW 15.5 H Plt Count 50 L MPV 12.7 H Immature Gran % See Differential Neutrophils % 30.0 Band Neutrophils % 40 Lymphocytes % 12.0 Monocytes % 10.0 Eosinophils % 0.0 Basophils % 2.0 Metamyelocytes % 4 Myelocytes % 2 Nucleated RBC % 0 Absolute Neutrophils 0.31 L* Absolute Lymphocytes 0.05 L Absolute Monocytes 0.04 L Absolute Eosinophils 0.00 Absolute Basophils 0.01 RBC Morphology See below Poikilocytosis 1+ VBG Lactate 0.9 Sodium 133 L Potassium 3.3 L Chloride 99 Carbon Dioxide 24.1 Anion Gap 9.9 BUN 13 D Creatinine 0.7 Estimated GFR/1.73 m2 >= 60.00 Glucose 87 Calcium 7.7 L Vancomycin Trough 09/24/20 07:00 WBC RBC Hgb Hct MCV MCH MCHC RDW Plt Count MPV Immature Gran % Neutrophils % Band Neutrophils % Lymphocytes % Monocytes % Eosinophils % Basophils % Metamyelocytes % Myelocytes % Nucleated RBC % Absolute Neutrophils Absolute Lymphocytes Absolute Monocytes Absolute Eosinophils Absolute Basophils RBC Morphology Poikilocytosis VBG Lactate Sodium Potassium Chloride Carbon Dioxide Anion Gap BUN Creatinine Estimated GFR/1.73 m2 Glucose Calcium Vancomycin Trough 14.7
--- NOTE | 2020-09-24 11:06 | DI.RAD_ITS ---
EXAM: XR CHEST 2V PA LATERAL CLINICAL HISTORY: PNA, effusion. TECHNIQUE: 2D digital imaging was performed. COMPARISON: CR,XR XR PORTABLE CHEST AP from 09/22/2020 FINDINGS: Heart size is upper normal. The mediastinum is not widened. Distal tip of the right Port-A-Cath is at the SVC/RA junction. Increasing size of the left pleural effusion, now moderate-large. Volume loss in left lower lobe rel ated to the increasing pleural effusion. Opposite-right lung is clear and there is no obvious pleural fluid on the right side. Surgical clips are noted in the left axilla. IMPRESSION: Compared to 09/22/2020 has been further increase in size of the unilateral left pleural effusion.Ther e is volume loss in left lower lobe and probable infiltrate. DATA REPOSITORY: RADIATION DOSE DELIVERED:
[2020-09-24] MEDS: Normal Saline 1,000 ML 125 ML IV ×2 (12:55→21:31)
--- NOTE | 2020-09-24 14:48 | W.NUTCONSULT ---
Date of service: 09/24/20 Time of Service: 14:48 Nutritional Consult ASSESSMENT: 70 year old male admitted with severe neutropenia following chemotherapy for B cell lymphoma with PNA. BMI wnl however has lost over 30 lbs in last 6 months considered significant and of concern. Following neutropenic diet with excellent intake (>75% of meals). Did not visit pt today as meeting nutrient needs. NUTRITIONAL DIAGNOSIS: Moderate malnutrition in view of signficant weight loss in last 6 months due to decreased nutrient intake while treated with chemotherapy INTERVENTION: continue neutropenic diet, supplement with ensure as needed MONITORING AND EVALUATION: weight, po intake, WBC Time Spent in Nutritional Counseling and Treatment: 0
[2020-09-24] MEDS: Acetaminophen 325 MG TAB 650 MG PO (21:36)
[2020-09-25] VITALS (10 sets, daily range): BP systolic 92–124; BP diastolic 63–82; PULSE 98–126; RESP 17–20; TEMP 36.1–37.5; O2SAT 96–98
[2020-09-25] MEDS: PIPERACILLIN/TAZO 3.375 GM in Normal Saline 50 ML IVPB ×4 (03:41→21:57)
[2020-09-25] MEDS: Normal Saline 1,000 ML 125 ML IV ×2 (06:41→17:41)
[2020-09-25] MEDS: Metoprolol 5 MG/5 ML VIAL IVP (07:03)
[2020-09-25] MEDS: Normal Saline Flush 10 ML SYR IVP ×3 (07:12→19:36)
[2020-09-25] MEDS: VANCOMYCIN/WATER (PEG) 1 GM/200 ML BAG IV ×3 (08:19→23:37)
[2020-09-25] MEDS: MORPHine 4 MG/ML SYR IVP ×3 (08:23→19:37)
[2020-09-25] MEDS: Cholecalciferol (Vitamin D3) 1,000 UNIT TAB 5000 UNITS JT (08:27)
[2020-09-25] MEDS: Digoxin 0.125 MG TAB PO (08:27)
[2020-09-25] MEDS: Fluconazole 100 MG TAB 200 MG PO (08:27)
[2020-09-25] MEDS: Metoprolol CR 100 MG TABCR PO (08:29)
[2020-09-25] MEDS: Potassium Chloride 20 MEQ TABCR PO ×2 (08:29→19:38)
[2020-09-25] MEDS: Magnesium Oxide 400 MG TAB PO (08:29)
[2020-09-25] MEDS: Apixaban 5 MG TAB PO ×2 (08:29→19:37)
[2020-09-25 09:01] LABS: Abs Immature Grans 0.06 10^3/uL (0.0-0.06); HCT 25.2 % (40.0-50.0); HGB 8.4 g/dL (13.5-17.5); MCH 31.5 pg (27.0-33.0); MCHC 33.3 % (32.0-36.0); MCV 94.4 fL (80-95); MPV 12.3 fL (8.0-11.0); Nucleated RBC 0 %; RBC 2.67 10^6/uL (4.36-5.78); RDW 15.5 % (11.8-14.1); RDW-SD 53.3 fL
[2020-09-25 09:06] LABS: WBC 1.33 10^3/uL (4.4-10.8)
[2020-09-25 09:14] LABS: Anion Gap 6.6 mmol/L (3-11); BUN 11 mg/dL (7-18); CO2 25.4 mmol/L (21.0-32.0); CREATININE 0.5 mg/dL (0.70-1.30); Chloride 100 mmol/L (98-107); Glucose 106 mg/dL (74-106); Potassium 3.8 mmol/L (3.5-5.1); Sodium 132 mmol/L (136-145)
[2020-09-25 09:31] LABS: Absolute Eosinophil Count 0.01 10^3/uL (0.0-0.7); Absolute Lymphocyte Count 0.05 10^3/uL (1.2-3.4); Absolute Monocyte Count 0.15 10^3/uL (0.1-0.8); Absolute Neutrophil Count 1.12 10^3/uL (1.2-6.7); Bands % 14; Diff Comment Manual Differential; Platelet Count 50 10^3/uL (130-400)
[2020-09-25 09:32] LABS: RBC Morphology Normal
[2020-09-25] MEDS: dilTIAZem CD 180 MG CAPCR PO (10:11)
--- NOTE | 2020-09-25 12:10 | W.PM.PROGNOT ---
Date of Service Date of service: 09/25/20 Time of Service: 12:10 Assessment and Plan Assessment and plan (1) Pancytopenia: Status: Acute Assessment and plan: Improving. Cont Zosyn for PNA Monitor (2) Pneumonia: Status: Acute Assessment and plan: Repeat CXR yesterday showed increase in L pleural effusion. Will d/w surgery regarding a thoracentesis; would need to hold Eliquis. Not requiring supplemental O2. Qualifiers: Pneumonia type: due to unspecified organism (3) Atrial fibrillation with rapid ventricular response: Status: Acute Assessment and plan: Conts to have elevated HR especially with exertion. Cont Metoprolol and Digoxin. Add diltiazem 180mg CR daily. Cardiology consult appreciated. On Telemetry. K and Mg repleted. (4) Pleural effusion on left: Status: Acute Assessment and plan: See PNA (5) B-cell lymphoma: Status: Acute Assessment and plan: He has completed his course of scheduled chemotx. Oncology appt is scheduled for next Thu. Qualifiers: B-cell lymphoma type: unspecified B-cell Lymphoma site: multiple regions Qualified Code(s): C85.18 - Unspecified B-cell lymphoma, lymph nodes of multiple sites Subjective Subjective Patient reports: pain is less (L low back pleuritic pain) and afebrile; denies nausea and vomiting Exam Const General: cooperative and no acute distress Nutritional Appearance: average body habitus Orientation: alert and oriented x3 Resp Effort & Inspection: normal respiratory effort Auscultation: clear to auscultation bilaterally and diminished lung sounds on the left in the lower lung daugherty Cardio Jugular venous pressure: no JVD Other: Irreg Irreg GI Palpation: soft and nontender Extrem General: no pedal edema and no calf tenderness Objective Last Vital Signs Temp 37.5 C 09/25/20 11:18 Pulse 109 H 09/25/20 11:18 Resp 18 09/25/20 11:18 BP 124/81 09/25/20 11:18 Pulse Ox 96 09/25/20 11:18 Laboratory Results - last 24 hr 09/25/20 09/25/20 08:51 08:51 WBC 1.33 L* D RBC 2.67 L Hgb 8.4 L Hct 25.2 L MCV 94.4 MCH 31.5 MCHC 33.3 RDW 15.5 H Plt Count 50 L MPV 12.3 H Immature Gran % 0.0 Neutrophils % 70.0 Band Neutrophils % 14 Lymphocytes % 4.0 Monocytes % 11.0 Eosinophils % 1.0 Basophils % 0.0 Nucleated RBC % 0 Absolute Neutrophils 1.12 L Absolute Lymphocytes 0.05 L Absolute Monocytes 0.15 Absolute Eosinophils 0.01 Absolute Basophils 0.00 RBC Morphology Normal Sodium 132 L Potassium 3.8 Chloride 100 Carbon Dioxide 25.4 Anion Gap 6.6 BUN 11 Creatinine 0.5 L Estimated GFR/1.73 m2 >= 60.00 Glucose 106 Calcium 8.0 L
--- NOTE | 2020-09-25 13:51 | DSE_ITS ---
Date of service: 09/26/20 Time of Service: 08:11 DS: Diagnosis Discharge Diagnosis (1) Pancytopenia: Status: Acute (2) Pneumonia: Status: Acute (3) Atrial fibrillation with rapid ventricular response: Status: Acute (4) Pleural effusion on left: Status: Acute (5) B-cell lymphoma: Status: Acute Discharge Plan Disposition Patient Disposition: HOME Condition: Good Discharge Details Reason For Visit: CAP, NEUTROPENIA Admit Date/Time: 09/22/20 13:54 Admit Provider: Jose Stevenson Attending Provider: Jose Stevenson Primary Care Provider: Socrates Tracey Hospital Course Hospital Course: Radiology appt for chest x-ray at 10:00 AM on Thursday09/28/2020. He has oncology and cardiology follow-ups scheduled. Home Meds and New Rx's Prescriptions: New fluconazole 100 mg Tablet 200 mg PO DAILY Qty: 0 RF: 0 polyethylene glycol 3350 17 gram Powder In Packet 17 g PO DAILY PRN PRN (Reason: Constipation) Qty: 0 RF: 0 diltiazem HCl 180 mg Capsule,Extended Release 24hr 180 mg PO DAILY Qty: 30 RF: 0 magnesium oxide 400 mg (241.3 mg magnesium) Tablet 400 mg PO DAILY Qty: 0 RF: 0 digoxin 125 mcg (0.125 mg) Tablet 0.125 mg PO DAILY@0800 Qty: 30 RF: 0 cholecalciferol (vitamin D3) 25 mcg (1,000 unit) Tablet 5,000 units J-tube DAILY Qty: 0 RF: 0 amoxicillin-pot clavulanate [Augmentin] 875-125 mg tablet 1 tab PO BID Qty: 14 RF: 0 oxycodone-acetaminophen [Endocet] 5-325 mg tablet 1 tab PO Q6H PRNQty: 20 RF: 0 Continued metoprolol succinate 100 mg tablet extended release 24 hr 100 mg PO DAILY Qty: 90 RF: 3 Eliquis 5 mg Tablet 5 mg PO BID RF: 0 prochlorperazine maleate [Compazine] 10 mg Tablet 10 mg PO BID PRNRF: 0 Discontinued nystatin 100,000 unit/mL Suspension 100,000 unit PO QID RF: 0 Discharge Instructions Instructions: Pleural Effusion (DC) Stand Alone Forms: Nursing Discharge Form Referrals: [facility] [Other] - 09/28/20 10:00 am Socrates Tracey [Primary Care Provider] - 10/16/20 10:40 am Activity:: Activity as Tolerated Equipment/Supplies:: No Equipment Needed Diet:: Normal Diet Discharge Orders Discharge Orders: Discharge Order (Routine); Ordered 09/26/20 Ordered By: Jose Stevenson Other Ambulatory Orders: XR chest 2V PA & lateral (Routine) Timeframe: 20200928 Location: None Selected Ordered By: Jose Stevenson DS: Summary Time Spent with Patient providing and/or coordinating discharge services: Greater than 30 minutes Status at Discharge Functional status at discharge: independent ambulation Overall status at discharge: patient is progressing back to baseline Mental Status: mental status grossly normal Speech and Movement: speech and movement normal Mood: congruent mood Affect: normal affect Exam Const General: cooperative and no acute distress Nutritional Appearance: average body habitus Orientation: alert and oriented x3 Resp Effort & Inspection: normal respiratory effort Auscultation: clear to auscultation bilaterally and diminished lung sounds on t he left in the lower lung daugherty Cardio Other: Irreg Irreg GI Palpation: soft and nontender Auscultation: normal bowel sounds Extrem General: no pedal edema and no calf tenderness Psych Mental Status: mental status grossly normal Speech and Movement: speech and movement normal Mood: congruent mood Affect: normal affect DS: Data Vitals/I&O Vitals and I&O: Vital Signs Temperature 37.5 C 09/25/20 11:18 Temperature Source Temporal Artery Scan 09/25/20 11:18 Pulse 109 H 09/25/20 11:18 Pulse Rhythm Irregular 09/25/20 03:48 Pulse 114 H 09/24/20 01:50 Respiratory Rate 18 09/25/20 11:18 Respiratory Effort Non-Labored 09/25/20 03:48 Respiratory Depth Normal 09/25/20 03:48 Respiratory Pattern Normal 09/25/20 03:48 Blood Pressure 124/81 09/25/20 11:18 Pulse Oximetry 96 09/25/20 11:18 Oxygen Delivery Method Room Air 09/25/20 11:18 Oxygen Flow Rate 0 09/25/20 11:18 Pain Level 5 09/25/20 11:18 Comment 09/24/20 23:55 Intake & Output 09/24/20 09/25/20 09/25/20 23:59 11:59 23:59 Intake Total 1800 / 4750 1610 / 2090 480 / 2090 Output Total 550 / 1200 500 / 500 Balance 1250 / 3550 1110 / 1590 480 / 1590 Intake: IV 1300 / 4000 1250 / 1250 Oral 500 / 750 360 / 840 480 / 840 Output: Urine 550 / 1200 500 / 500 Other: Urine Color Yellow Light Mitzy Urine Appearance Clear Clear Urine Odor Normal Normal Voiding Methods Urinal Urinal Data Completed and Pending Labs on day of discharge: Labs from last 24 hours 09/25/20 09/25/20 08:51 08:51 WBC 1.33 L* D RBC 2.67 L Hgb 8.4 L Hct 25.2 L MCV 94.4 MCH 31.5 MCHC 33.3 RDW 15.5 H Plt Count 50 L MPV 12.3 H Immature Gran % 0.0 Neutrophils % 70.0 Band Neutrophils % 14 Lymphocytes % 4.0 Monocytes % 11.0 Eosinophils % 1.0 Basophils % 0.0 Nucleated RBC % 0 Absolute Neutrophils 1.12 L Absolute Lymphocytes 0.05 L Absolute Monocytes 0.15 Absolute Eosinophils 0.01 Absolute Basophils 0.00 RBC Morphology Normal Sodium 132 L Potassium 3.8 Chloride 100 Carbon Dioxide 25.4 Anion Gap 6.6 BUN 11 Creatinine 0.5 L Estimated GFR/1.73 m2 >= 60.00 Glucose 106 Calcium 8.0 L Preliminary micro results at discharge 09/22/20 14:30 Blood Culture - Preliminary Blood NO GROWTH 48 HOURS 09/22/20 14:06 Blood Culture - Preliminary Blood NO GROWTH 48 HOURS [facility] Medical History Hypertension, essential, benign (02/24/18) Knee pain suspicious for meniscal injury/degeneration Overweight (03/12/16) SOB (shortness of breath) Tobacco abuse (03/12/16) Weight loss -30 lbs Surgical History H/O lymph node biopsy Family History Mother , AGE 97 Breast cancer Father , AGE 63 Liver disease Cirrhosis Alcohol abuse Sister No problems noted. Sister Lymphoma Son No problems noted. Son No problems noted. Social History Smoking/Tobacco Use Status: Current-Occasional Tobacco Type: cigarettes Years smoked: 40 Tobacco: How many years used: 40 Quit status: considering quitting Second Hand Exposure: Yes Smoking risk assessment performed?: Yes Alcohol Intake: former Drug use: Daily Substance use type: marijuana Details: Pt states he has decreased smoking from 1/2ppd to 2-3 cig/day, states has not drank etoh +6 wks, marijuana 3-4xwk. Caregiver/Support person: No Housing: house Communication Needs: None Do you need help understanding health information?: Rarely current occupation: CONTRACTOR Pets and animals: No Sexually active: No Do you think of yourself as: straight/heterosexual Current gender identity: male What is your relationship status?: How often do you talk on the phone with friends or family?: once per week How often do you get together with friends or relatives?: once per week How often do you attend presybeterian or evangelical services?: 1-3 times per year Do you belong to any clubs or organized social groups?: yes Panel score (0-1 are the most socially isolated patients): 1 What type of physical activity do you participate in: walking Duration: 15-30 minutes/day Frequency: 3-4 times per week Petrona/Jain: None Special petrona needs: No Seatbelt use: always Helmet use: No Drive intox or ride w/intox pharmacy delivery driver: No Do you feel safe at home: Yes Do you feel safe in your relationship?: Yes
--- NOTE | 2020-09-25 16:52 | CMPROGNOTE_ITS ---
- If Service Date Differs Date of service: 09/25/20 Time of Service: 16:52 Care Management Progress Note S/O: Ben was sitting up in bed when CM met with him. He reported that he is doing well today, but he does not want to mcnulty himself out of the hospital. Per provider, Ben will remain at [facility] until his rate is controlled, and his medication was adjusted today with the addition of diltiazem. He is comfortable staying tonight. He reported that his sister is staying with him, and will help manage his care when he returns home. CM will continue to follow. A: Ben is a pleasant 70 year old gentleman admitted on 09/22/20 with Community acquired pneumonia and neutropenia P:Ben will likely be discharged home with no new services. His sister is staying with him and will provide assistance as needed. He will follow up with his PCP, Oncology team and plan of care and transport with family. CM will continue to support Ben and assess for discharge planning concerns.
[2020-09-26] MEDS: Normal Saline Flush 10 ML SYR IVP ×4 (02:08→13:17)
[2020-09-26] MEDS: MORPHine 4 MG/ML SYR IVP ×3 (02:09→13:17)
[2020-09-26 03:35] VITALS: BP 88/63; PULSE 95; RESP 17; TEMP 37.8; O2SAT 90
[2020-09-26] MEDS: PIPERACILLIN/TAZO 3.375 GM in Normal Saline 50 ML IVPB ×2 (03:40→09:56)
[2020-09-26 03:48] VITALS: BP 102/64
[2020-09-26] MEDS: Normal Saline 1,000 ML 125 ML IV ×2 (05:24→05:35)
[2020-09-26 06:32] LABS: Abs Immature Grans 0.41 10^3/uL (0.0-0.06); Absolute Basophil Count 0.03 10^3/uL (0.0-0.2); HCT 23.6 % (40.0-50.0); HGB 7.9 g/dL (13.5-17.5); MCH 31.6 pg (27.0-33.0); MCHC 33.5 % (32.0-36.0); MCV 94.4 fL (80-95); MPV 12.7 fL (8.0-11.0); Nucleated RBC 0 %; RDW 15.7 % (11.8-14.1); RDW-SD 53.6 fL; WBC 2.68 10^3/uL (4.4-10.8)
[2020-09-26 06:44] LABS: Anion Gap 11.9 mmol/L (3-11); BUN 9 mg/dL (7-18); CO2 21.1 mmol/L (21.0-32.0); CREATININE 0.6 mg/dL (0.70-1.30); Chloride 98 mmol/L (98-107); Glucose 105 mg/dL (74-106); Magnesium 1.4 mg/dL (1.8-2.4); Sodium 131 mmol/L (136-145)
[2020-09-26 07:03] LABS: Absolute Neutrophil Count 2.06 10^3/uL (1.2-6.7); Bands % 12; Platelet Count 68 10^3/uL (130-400)
[2020-09-26 07:04] LABS: Absolute Eosinophil Count 0.03 10^3/uL (0.0-0.7); Absolute Lymphocyte Count 0.16 10^3/uL (1.2-3.4); Absolute Monocyte Count 0.27 10^3/uL (0.1-0.8); Diff Comment Manual Differential; Hypochromasia 2+; Metamyelocytes % 5; Polychromasia Present
[2020-09-26 07:05] LABS: Poikilocytes 2+
[2020-09-26 07:07] VITALS: PULSE 98
[2020-09-26 07:15] VITALS: BP 106/62; PULSE 102; RESP 18; TEMP 36.7; O2SAT 95
[2020-09-26] MEDS: Cholecalciferol (Vitamin D3) 1,000 UNIT TAB 5000 UNITS JT (08:05)
[2020-09-26] MEDS: VANCOMYCIN/WATER (PEG) 1 GM/200 ML BAG IV (08:05)
[2020-09-26] MEDS: dilTIAZem CD 180 MG CAPCR PO (08:05)
[2020-09-26] MEDS: Apixaban 5 MG TAB PO (08:05)
[2020-09-26] MEDS: Magnesium Oxide 400 MG TAB PO (08:05)
[2020-09-26 08:06] VITALS: PULSE 110
[2020-09-26] MEDS: Potassium Chloride 20 MEQ TABCR PO (08:06)
[2020-09-26] MEDS: Metoprolol CR 100 MG TABCR PO (08:06)
[2020-09-26] MEDS: Digoxin 0.125 MG TAB PO (08:06)
[2020-09-26] MEDS: Fluconazole 100 MG TAB 200 MG PO (08:06)
[2020-09-26] MEDS: MAGNESIUM SULFATE 2 GM/50 ML BAG IVPB (10:39)
--- NOTE | 2020-09-26 11:54 | W.PM.DS.N ---
DS: Diagnosis Discharge Diagnosis (1) Pancytopenia: Status: Acute Asessment and Plan: Secondary to chemotx for B-cell lymphoma. Initial WBC count of 0.07 and ANC of 40. On day of discharge, improved to 2.68 and 2059. He will f/u with his oncologist as per previously scheduled appt. (2) Pneumonia: Status: Acute Asessment and Plan: WBC count improved. Afebrile. No cough, hypoxia. Will extend treatment to outpt setting with Augmentin 875mg BID for 7 days. (3) Atrial fibrillation with rapid ventricular response: Status: Acute Asessment and Plan: Control required addition of Cardizem and Digoxin to his routine regimen of metoprolol. Electrolyte replacement of K and Mg+. On day of discharge given 2g IV MgSO4. Monitor as outpt. He has cardiology f/u scheduled. (4) Pleural effusion on left: Status: Acute Asessment and Plan: Large Left pleural effusion; present in May but now larger. Causing pleuritic pain but no hypoxemia. CXR and general surgery appt. on Thursday 09/28. Planning to hold Eliquis over the weekend after general surgery evaluation and the thoracentesis on the following Thursday or Thursday. (5) B-cell lymphoma: Status: Acute Asessment and Plan: Cont to f/u with oncology as per previous scheduling. Discharge Plan Disposition Patient Disposition: HOME Condition: Good Discharge Details Reason For Visit: CAP, NEUTROPENIA Admit Date/Time: 09/22/20 13:54 Admit Provider: Jose Stevenson Attending Provider: Jose Stevenson Primary Care Provider: Socrates Tracey Hospital Course Hospital Course: Radiology appt for chest x-ray at 10:00 AM on Thursday09/28/2020. He has oncology and cardiology follow-ups scheduled. Home Meds and New Rx's Prescriptions: New fluconazole 100 mg Tablet 200 mg PO DAILY Qty: 0 RF: 0 polyethylene glycol 3350 17 gram Powder In Packet 17 g PO DAILY PRN PRN (Reason: Constipation) Qty: 0 RF: 0 diltiazem HCl 180 mg Capsule,Extended Release 24hr 180 mg PO DAILY Qty: 30 RF: 0 magnesium oxide 400 mg (241.3 mg magnesium) Tablet 400 mg PO DAILY Qty: 0 RF: 0 digoxin 125 mcg (0.125 mg) Tablet 0.125 mg PO DAILY@0800 Qty: 30 RF: 0 cholecalciferol (vitamin D3) 25 mcg (1,000 unit) Tablet 5,000 units J-tube DAILY Qty: 0 RF: 0 amoxicillin-pot clavulanate [Augmentin] 875-125 mg tablet 1 tab PO BID Qty: 14 RF: 0 oxycodone-acetaminophen [Endocet] 5-325 mg tablet 1 tab PO Q6H PRNQty: 20 RF: 0 Continued metoprolol succinate 100 mg tablet extended release 24 hr 100 mg PO DAILY Qty: 90 RF: 3 Eliquis 5 mg Tablet 5 mg PO BID RF: 0 prochlorperazine maleate [Compazine] 10 mg Tablet 10 mg PO BID PRNRF: 0 Discontinued nystatin 100,000 unit/mL Suspension 100,000 unit PO QID RF: 0 Discharge Instructions Instructions: Diltiazem (By mouth), Digoxin (By mouth), A-fib (Atrial Fibrillation) (GEN), Pleural Effusion (DC), Digoxin Toxicity (GEN) Stand Alone Forms: Nursing Discharge Form Referrals: [facility] [Other] - 09/28/20 10:00 am Socrates Tracey [Primary Care Provider] - 10/16/20 10:40 am Activity:: Activity as Tolerated Equipment/Supplies:: No Equipment Needed Diet:: Normal Diet Discharge Orders Discharge Orders: Discharge Order (Routine); Ordered 09/26/20 Ordered By: Jose Stevenson Other Ambulatory Orders: XR chest 2V PA & lateral (Routine) Timeframe: 20200928 Location: None Selected Ordered By: Jose Stevenson DS: Summary Time Spent with Patient providing and/or coordinating discharge services: Greater than 30 minutes Status at Discharge Functional status at discharge: independent ambulation Overall status at discharge: patient is progressing back to baseline Mental Status: mental status grossly normal Speech and Movement: speech and movement normal Mood: congruent mood Affect: normal affect Exam Psych Mental Status: mental status grossly normal Speech and Movement: speech and movement normal Mood: congruent mood Affect: normal affect DS: Data Vitals/I&O Vitals and I&O: Vital Signs Temperature 36.7 C 09/26/20 07:15 Temperature Source Tympanic 09/26/20 07:15 Pulse 110 H 09/26/20 08:06 Pulse Rhythm Irregular 09/26/20 08:05 Pulse 114 H 09/24/20 01:50 Respiratory Rate 18 09/26/20 07:15 Respiratory Effort Non-Labored 09/26/20 08:05 Respiratory Depth Normal 09/26/20 08:05 Respiratory Pattern Normal 09/26/20 08:05 Blood Pressure 106/62 09/26/20 07:15 Pulse Oximetry 95 09/26/20 07:15 Oxygen Delivery Method Room Air 09/26/20 07:15 Oxygen Flow Rate 0 09/26/20 07:15 Pain Level 7 09/26/20 08:04 Comment 09/26/20 03:35 Intake & Output 09/25/20 09/25/20 09/26/20 11:59 23:59 11:59 Intake Total 1860 / 4050 2190 / 4050 1795.834 / 1795.834 Output Total 500 / 1150 650 / 1150 200 / 200 Balance 1360 / 2900 1540 / 2900 1595.834 / 1595.834 Weight 78.2 kg 79.1 kg Intake: IV 1500 / 2850 1350 / 2850 1315.834 / 1315.834 Oral 360 / 1200 840 / 1200 480 / 480 Output: Urine 500 / 1150 650 / 1150 200 / 200 Other: Urine Color Light Mitzy Yellow Yellow Urine Appearance Clear Clear Clear Urine Odor Normal Voiding Methods Urinal Toilet Urinal Urinal Data Completed and Pending Labs on day of discharge: Labs from last 24 hours 09/26/20 09/26/20 09/23/20 06:09 06:09 06:12 WBC 2.68 L D RBC 2.50 L Hgb 7.9 L Hct 23.6 L MCV 94.4 MCH 31.6 MCHC 33.5 RDW 15.7 H Plt Count 68 L MPV 12.7 H Immature Gran % 0.0 Neutrophils % 65.0 Band Neutrophils % 12 Lymphocytes % 6.0 Monocytes % 10.0 Eosinophils % 1.0 Basophils % 1.0 Metamyelocytes % 5 Nucleated RBC % 0 Absolute Neutrophils 2.06 Absolute Lymphocytes 0.16 L Absolute Monocytes 0.27 Absolute Eosinophils 0.03 Absolute Basophils 0.03 RBC Morphology See below Polychromasia Present Hypochromasia 2+ Poikilocytosis 2+ Sodium 131 L Potassium 4.0 Chloride 98 Carbon Dioxide 21.1 Anion Gap 11.9 H BUN 9 Creatinine 0.6 L Estimated GFR/1.73 m2 >= 60.00 Glucose 105 Calcium 8.0 L Magnesium 1.4 L Path Cons Comment Preliminary micro results at discharge 09/22/20 14:30 Blood Culture - Preliminary Blood NO GROWTH 72 HOURS 09/22/20 14:06 Blood Culture - Preliminary Blood NO GROWTH 72 HOURS PFS Medical History Hypertension, essential, benign (02/24/18) Knee pain suspicious for meniscal injury/degeneration Overweight (03/12/16) SOB (shortness of breath) Tobacco abuse (03/12/16) Weight loss -30 lbs Surgical History H/O lymph node biopsy Family History Mother , AGE 97 Breast cancer Father , AGE 63 Liver disease Cirrhosis Alcohol abuse Sister No problems noted. Sister Lymphoma Son No problems noted. Son No problems noted. Social History Smoking/Tobacco Use Status: Current-Occasional Tobacco Type: cigarettes Years smoked: 40 Tobacco: How many years used: 40 Quit status: considering quitting Second Hand Exposure: Yes Smoking risk assessment performed?: Yes Alcohol Intake: former Drug use: Daily Substance use type: marijuana Details: Pt states he has decreased smoking from 1/2ppd to 2-3 cig/day, states has not drank etoh +6 wks, marijuana 3-4xwk. Caregiver/Support person: No Housing: house Communication Needs: None Do you need help understanding health information?: Rarely current occupation: CONTRACTOR Pets and animals: No Sexually active: No Do you think of yourself as: straight/heterosexual Current gender identity: male What is your relationship status?: How often do you talk on the phone with friends or family?: once per week How often do you get together with friends or relatives?: once per week How often do you attend methodist or jew services?: 1-3 times per year Do you belong to any clubs or organized social groups?: yes Panel score (0-1 are the most socially isolated patients): 1 What type of physical activity do you participate in: walking Duration: 15-30 minutes/day Frequency: 3-4 times per week Petrona/Taoism: None Special petrona needs: No Seatbelt use: always Helmet use: No Drive intox or ride w/intox day haul or farm charter bus driver: No Do you feel safe at home: Yes Do you feel safe in your relationship?: Yes
[2020-09-26] MEDS: Heparin 500 UNITS/5 ML SYRINGE IVP (13:15)
[2020-09-26 13:49] VITALS: PULSE 109
--- NOTE | 2020-09-26 14:04 | CHAPLAIN ---
Ben was getting ready to be discharged when I visited, and was happy to be going home to [place]. He told me about his last chemo treatment being difficult on him, and then getting pneumonia. His sister, who is a retired nurse, has been staying with him since March. Ben said they have a good relationship and she has been able to go to appointments with him and provide care.
--- NOTE | 2020-09-26 17:37 | PDOC.CMDIS ---
- If Service Date Differs Date of service: 09/26/20 Time of Service: 17:37 LACE Index Scoring Tool - Questions: Length of Stay (in days): 4 - 6 Acuity (Admit via E.D.?): Yes Comorbidities: Any Tumor E.D. Visits: 2 - Answers: Total Score: 11 Risk of Readmission: High Risk Care Management Discharge Reason for Hospitalization: Pneumonia Discharge Plan: Ben will be discharged home with no new services. His sister is staying with him and will provide assistance as needed. He will follow up with his PCP, Oncology team and plan of care and transport with family. Patient/Family Education Needs: Discharge plan, limitations, follow up plan, Ask Me Three
[2020-09-28 11:29] LABS: Platelet Count 64 10^3/uL (130-400)
== END 2020-09-26 14:01 | disposition home or self-care (01) | DRG 193 ==
LOC: ER 14:03 → MS 14:56
PROVIDERS: Internal Medicine; Admitting Provider Family Medicine; Emergency Provider Physician Assistant; PCP Family Medicine; Visit Provider Family Medicine
DX: J18.9 Pneumonia, unspecified organism (principal); D61.810 Antineoplastic chemotherapy induced pancytopenia; C85.18 Unspecified B-cell lymphoma, lymph nodes of multiple sites; J90 Pleural effusion, not elsewhere classified; D70.1 Agranulocytosis secondary to cancer chemotherapy; I48.91 Unspecified atrial fibrillation; Z79.01 Long term (current) use of anticoagulants; B37.9 Candidiasis, unspecified; R63.4 Abnormal weight loss; I10 Essential (primary) hypertension; F17.210 Nicotine dependence, cigarettes, uncomplicated; T45.1X5A Adverse effect of antineoplastic and immunosuppressive drugs, initial encounter; M54.5 Low back pain
CPT/HCPCS: 36415; 36591; 71275; 80048; 80053; 83690; 87040; 93005; 94640; 96361; 96365; 96366; 96375; 96376; 99222; 99223; 99232; 99239; 99254; 99285; 71045; 71046; 80202; 83605; 83735; 84484; 85025; 85610; 85730; 93010; J2270; J2543; J3475; J3480; J3490; J7620

== ENCOUNTER → 2020-09-24 09:45 | Outpatient (BNVA) | payer MEDICARE, SELFPAY | PROVIDERS: PCP Family Medicine; Referring Provider Family Medicine; Visit Provider Internal Medicine Cardiovascular Disease | DX: R69 Illness, unspecified (principal) ==

== ENCOUNTER 2020-09-28 04:09 | Outpatient (CLI) | payer MEDICARE, SELFPAY ==
--- NOTE | 2020-09-28 11:26 | DI.RAD_ITS ---
EXAM: XR CHEST 2V PA LATERAL INDICATION: F/U PLEURAL EFFUSION. COMPARISON: CR,XR XR PORTABLE CHEST AP from 09/22/2020 CR,XR XR PORTABLE CHEST AP from 09/22/[address] CHEST PE CTA from 09/22/[address] CHEST PE CTA from 09/22/2020 CR XR CHEST 2V PA LATERAL from 09/24/2020 CR XR CHEST 2V PA LATERAL from 09/24/2020 TECHNIQUE: 2D digital imaging was performed. FINDINGS: The heart is mildly enlarged, unchanged. A port is noted over the right upper chest with the tip in the SVC. There has been no change in the moderate-sized left pleural effusion and left lower lobe at electasis. The right lung remains clear. IMPRESSION: Stable size of left pleural effusion. No new abnormalities. DATA REPOSITORY: RADIATION DOSE DELIVERED:
== END 2020-09-28 04:29 ==
PROVIDERS: PCP Family Medicine; Visit Provider Family Medicine
DX: Z01.818 Encounter for other preprocedural examination (principal); J90 Pleural effusion, not elsewhere classified; I51.7 Cardiomegaly; R07.81 Pleurodynia
CPT/HCPCS: 71046

== ENCOUNTER 2020-10-02 13:56 | Day surgery (SDC) | payer MEDICARE, SELFPAY ==
--- NOTE | 2020-10-02 | DI.RAD_ITS ---
EXAM: XR PORTABLE CHEST AP CLINICAL HISTORY: s/p thorocentisis TECHNIQUE: COMPARISON: CR XR CHEST 2V PA LATERAL from 09/28/2020 FINDINGS: Portable AP chest at 1525 hours. Patient has history of a left pleural effusion, most recently seen on chest radiographs of September 28. The fusion is again noted on this frontal film, there may be areas of atelectasis in left lung base as well. Cardiac size cannot be assessed. Right lung is deyvi sly clear. There is central venous catheter in position on the right the tip of which overlies the s uperior vena cava. This is reportedly a post thoracentesis film and there is no evidence of pneumothorax. IMPRESSION: RADIATION DOSE DELIVERED: Total DLP
[2020-10-02 14:22] VITALS: BP 90/66; PULSE 86; RESP 20; TEMP 36.5; O2SAT 96
--- NOTE | 2020-10-02 14:53 | PAPNONF_PTH ---
PATIENT: Ben Dunham LOC: [facility] U#:[id number] AGE/SX: 70/M ROOM: RE10/02/[address]: Nga Castillo : 1950 BED: DIS: 10/02/2020 SPEC #: [id number] RECD: 10/02/20 17:59 STATUS: FAHAD REFara #: [id number] RADHA: 10/02/20 14:[address]: Nga Castillo DEPT: [facility] Cytology RECD BY: Brandi Gonzalez ENTERED: 10/02/20 18:00 SP TYPE: ELLIOT UGALDE DR: Socrates Tracey MD Tissues: 1 - BODY FLUID CYTO(NOT S/U/N/EM)[facility] 2 - BODY FLUID CYTO(NOT S/U/N/EM)[facility] Procedures: BODY FLUID CYTO(NOT SPU/UR/NIP/ENDOM)[facility] Comments: [id number] (SENT FRESH) (10/03/20 SPOKE TO [place] @ [facility])
--- NOTE | 2020-10-02 15:16 | W.PM.DSUDISC ---
Discharge Plan Disposition Patient Disposition: HOME Condition: Good Discharge Details Reason For Visit: PLEURAL EFFUSION L Attending Provider: Nga Castillo Primary Care Provider: Socrates Tracey Home Meds and New Rx's Prescriptions: No Action metoprolol succinate 100 mg tablet extended release 24 hr 100 mg PO DAILY Qty: 90 RF: 3 dronabinol [Marinol] 2.5 mg capsule 2.5 mg PO BID Qty: 60 RF: 0 Eliquis 5 mg Tablet 5 mg PO BID RF: 0 prochlorperazine maleate [Compazine] 10 mg Tablet 10 mg PO BID PRNRF: 0 fluconazole 100 mg Tablet 200 mg PO DAILY Qty: 0 RF: 0 polyethylene glycol 3350 17 gram Powder In Packet 17 g PO DAILY PRN PRN (Reason: Constipation) Qty: 0 RF: 0 diltiazem HCl 180 mg Capsule,Extended Release 24hr 180 mg PO DAILY Qty: 30 RF: 0 digoxin 125 mcg (0.125 mg) Tablet 0.125 mg PO DAILY@0800 Qty: 30 RF: 0 amoxicillin-pot clavulanate [Augmentin] 875-125 mg tablet 1 tab PO BID Qty: 14 RF: 0 oxycodone-acetaminophen [Endocet] 5-325 mg tablet 1 tab PO Q6H PRNQty: 20 RF: 0 diltiazem HCl 240 mg capsule,extended release 24hr 240 mg PO DAILY Qty: 30 RF: 0 Discharge Instructions Additional Instructions: Findings: fluid has been sent for culture. [facility] Surgical office will call if you need more antibiotics. Continue incentive spirometry 10x/hour while awake x 1 week -ice and tylenol for pain resume Ellquis on Thursday w/ pm dose Follow up:PCP in 2 wks -If any sharp chest pain/Shortness of breathe/ of bleeding that does not stop after holding direct pressure for 5 minutes- return to ER. Please call if you develop: fevers >101.5 Nausea or Vomiting Abdominal pain that is not transient DAY SURGERY UNIT POST COLONOSCOPY INSTRUCTIONS 1. Because there will be medication in your system for the next 24 hours, you may feel a little sleepy. Your coordination will be affected. Therefore: a. Do not drive or operate dangerous equipment for 24 hours. b. Do not drink alcohol beverages for 24 hours (not even beer). c. Plan to go home and rest for the day. 2. Generally there are no restrictions on your activity after a day or so has gone by, but you may feel a bit fatigued for a few days. 3 After you arrive home you may have a light meal and return to a normal diet as you can tolerate it without feeling sick to your stomach. 4. After surgery, you may feel pain or discomfort. This should be only transient, but if it persists please contact your doctor. 5. If there are any questions regarding the findings of your procedure, please feel free to contact your doctor. 6. If you are unable to contact your doctor with a problem, contact the hospital at [phone]. 7. Continue all your regular medications unless directed otherwise. I understand the above instructions and have no questions. Signature of Patient or Responsible Adult Escort Date/Time Name of Responsible Adult Escort Signature of Nurse Date/Time Activity:: no lifting over 20#'s or strenuous activity x 24 hrs Remove Dressings/Wound Care:: 24 hours Shower/Bathe:: 24 hours Diet:: As Tolerated Discharge Orders Discharge Orders: Discharge Order (Routine); Ordered 10/02/20 Ordered By: Nga Castillo
--- NOTE | 2020-10-02 15:31 | W.PM.OP ---
Date of service: 10/02/20 Time of Service: 15:32 Operative Note Operative Note DATE OF PROCEDURE: 10/02/20 PRE-OP DIAGNOSIS: left pleural effusion POST-OP DIAGNOSIS: same fluid sent for cytology/cell count & diff/cultures/etc PROCEDURE: thorocentisi SURGEON: Nga Castillo ANESTHESIA TYPE: Local By Surgeon Refer to Anesthesia Record ESTIMATED BLOOD LOSS: 1 PATHOLOGY: other Procedure Description: Pt is here today for thoracentesis for symptoms of shortness of breath. Chest x-ray was reviewed prior to beginning the procedure. Informed consent was obtained explaining risks and benefits of the procedure, including but not limited to bleeding, infection, pneumothorax, recurrence, complications of anesthesia, and other unforetold complications. PROCEDURE: The patient is brought to the procedure room and placed in the seated position. Ultrasound is used to localize the pocket on the left chest. The area is marked and then prepped and draped in the usual sterile fashion using a ChloraPrep scrub solution. 10 cc's of 1% Lidocaine is used to anesthetize the T10 interspace. The small milady is made with a #11 blade. The needle and catheter is then inserted over the top of the rib, aspirating as it is inserted. The needle is then removed. The catheter is then hooked up to the Vacutainer system and 250 cc's of straw-colored fluid is evacuated. The catheter is removed; pressure is held. Sterile compression dressing is applied. Portable chest x-ray shows no pneumothorax. There is still some fluid in the chest- most likely this is a loculated collection. to completely resolve all of this- he would require vats. fluid was sent for cytology and cultures. Consider if pt is still symptomatic or has fever/chills. Pt is given instructions in wound care, activity, medications, and warning signs: SOB, increasing in pain, chest pain, redness or temperature- if these occur, come to ED.
[2020-10-02 15:40] VITALS: BP 112/64; PULSE 83; RESP 18; TEMP 36.5; O2SAT 93
[2020-10-02 18:32] LABS: Source: Pleural; pH Body Fluid 7
[2020-10-02 18:48] LABS: Source Pleural
[2020-10-02 18:52] LABS: Source Pleural
[2020-10-03 10:02] LABS: Nucleated Cells 853 uL (0)
[2020-10-03 10:09] LABS: Nucleated Cells 1150 uL (0)
[2020-10-03 17:48] LABS: Glucose, Fluid <20 mg/dL (See Note)
[2020-10-04 16:05] LABS: Lactate Dehydrogenase (LD), BF 3225 U/L
[2020-10-04 16:06] LABS: Lactate Dehydrogenase (LD), BF 3045 U/L
[2020-10-05 11:05] LABS: Protein,Total, BF 3.2 g/dL
[2020-10-05 11:10] LABS: Protein,Total, BF 3.1 g/dL
== END 2020-10-02 15:57 | disposition home or self-care (01) ==
PROVIDERS: PCP Family Medicine; Visit Provider Surgery
PROC: (CPT 32554; principal; 2020-10-02 14:15)
DX: J90 Pleural effusion, not elsewhere classified (principal)
CPT/HCPCS: 32555; 71045; 81373; 83615; 83986; 84157; 87070; 87205; 88104; 89051

== ENCOUNTER 2020-10-22 13:58 | Outpatient (REF) | payer MEDICARE, SELFPAY ==
[2020-10-22 14:35] LABS: Abs Immature Grans 0.08 10^3/uL (0.0-0.06); Absolute Basophil Count 0.11 10^3/uL (0.0-0.2); Absolute Eosinophil Count 0.33 10^3/uL (0.0-0.7); Absolute Lymphocyte Count 0.41 10^3/uL (1.2-3.4); Absolute Monocyte Count 1.01 10^3/uL (0.1-0.8); Absolute Neutrophil Count 10.13 10^3/uL (1.2-6.7); Basophils % 0.9; Eosinophils % 2.7; HCT 29.3 % (40.0-50.0); HGB 9.2 g/dL (13.5-17.5); Immature Grans % 0.7; Lymphocytes % 3.4; MCHC 31.4 % (32.0-36.0); MCV 98.7 fL (80-95); MPV 12.2 fL (8.0-11.0); Monocytes % 8.4; Neutrophils % 83.9; Nucleated RBC 0 %; Platelet Count 371 10^3/uL (130-400); RBC 2.97 10^6/uL (4.36-5.78); RDW-SD 64.6 fL; WBC 12.07 10^3/uL (4.4-10.8)
[2020-10-22 14:48] LABS: ALT 19 U/L (16-63); AST 16 U/L (15-37); Albumin 2.5 g/dL (3.4-5.0); Alkaline Phosphatase 109 U/L (46-116); Anion Gap 8.9 mmol/L (3-11); BUN 16 mg/dL (7-18); Bilirubin, Total 0.2 mg/dL (0.2-1.0); CO2 28.1 mmol/L (21.0-32.0); CREATININE 0.6 mg/dL (0.70-1.30); Calcium 8.8 mg/dL (8.5-10.1); Chloride 102 mmol/L (98-107); Glucose 95 mg/dL (74-106); Potassium 4.3 mmol/L (3.5-5.1); Sodium 139 mmol/L (136-145); Total Protein 5.6 g/dL (6.4-8.2)
== END 2020-10-22 13:59 | disposition home or self-care (01) ==
LOC: LBN 13:58
PROVIDERS: PCP Family Medicine; Visit Provider Family Medicine
DX: C83.38 Diffuse large B-cell lymphoma, lymph nodes of multiple sites (principal); R63.4 Abnormal weight loss; I48.91 Unspecified atrial fibrillation
CPT/HCPCS: 80053; 85025

== ENCOUNTER 2020-10-29 14:11 | Outpatient (REF) | payer MEDICARE, SELFPAY ==
[2020-10-29 14:43] LABS: Abs Immature Grans 0.03 10^3/uL (0.0-0.06); Absolute Eosinophil Count 0.37 10^3/uL (0.0-0.7); Absolute Monocyte Count 0.78 10^3/uL (0.1-0.8); Absolute Neutrophil Count 6.45 10^3/uL (1.2-6.7); Basophils % 1.2; Eosinophils % 4.6; HCT 33.6 % (40.0-50.0); HGB 10.5 g/dL (13.5-17.5); Immature Grans % 0.4; Lymphocytes % 4.9; MCH 31.2 pg (27.0-33.0); MCHC 31.3 % (32.0-36.0); MCV 99.7 fL (80-95); MPV 12.3 fL (8.0-11.0); Monocytes % 9.6; Neutrophils % 79.3; Nucleated RBC 0 %; Platelet Count 352 10^3/uL (130-400); RBC 3.37 10^6/uL (4.36-5.78); RDW 18.6 % (11.8-14.1); RDW-SD 68.5 fL; WBC 8.13 10^3/uL (4.4-10.8)
[2020-10-29 15:03] LABS: ALT 20 U/L (16-63); AST 17 U/L (15-37); Albumin 2.9 g/dL (3.4-5.0); Alkaline Phosphatase 106 U/L (46-116); Anion Gap 7.8 mmol/L (3-11); BUN 20 mg/dL (7-18); Bilirubin, Total 0.3 mg/dL (0.2-1.0); CO2 28.2 mmol/L (21.0-32.0); CREATININE 0.7 mg/dL (0.70-1.30); Calcium 9.2 mg/dL (8.5-10.1); Chloride 103 mmol/L (98-107); Glucose 99 mg/dL (74-106); Potassium 4.2 mmol/L (3.5-5.1); Sodium 139 mmol/L (136-145); Total Protein 5.9 g/dL (6.4-8.2)
== END 2020-10-29 14:12 | disposition home or self-care (01) ==
LOC: LBN 14:11
PROVIDERS: PCP Family Medicine; Visit Provider Family Medicine
DX: C83.38 Diffuse large B-cell lymphoma, lymph nodes of multiple sites (principal); I48.91 Unspecified atrial fibrillation
CPT/HCPCS: 80053; 85025

== ENCOUNTER 2020-11-05 14:06 | Outpatient (REF) | payer MEDICARE, SELFPAY ==
[2020-11-05 14:39] LABS: Abs Immature Grans 0.02 10^3/uL (0.0-0.06); Immature Grans % 0.3; Nucleated RBC 0 %
[2020-11-05 14:50] LABS: ALT 24 U/L (16-63); AST 19 U/L (15-37); Albumin 3.2 g/dL (3.4-5.0); Alkaline Phosphatase 111 U/L (46-116); Anion Gap 10.3 mmol/L (3-11); BUN 20 mg/dL (7-18); Bilirubin, Total 0.3 mg/dL (0.2-1.0); CO2 26.7 mmol/L (21.0-32.0); CREATININE 0.6 mg/dL (0.70-1.30); Calcium 8.9 mg/dL (8.5-10.1); Chloride 106 mmol/L (98-107); Glucose 125 mg/dL (74-106); Potassium 3.7 mmol/L (3.5-5.1); Sodium 143 mmol/L (136-145); Total Protein 6.1 g/dL (6.4-8.2)
[2020-11-05 15:18] LABS: Absolute Basophil Count 0.07 10^3/uL (0.0-0.2); Absolute Eosinophil Count 0.41 10^3/uL (0.0-0.7); Absolute Lymphocyte Count 0.41 10^3/uL (1.2-3.4); Absolute Neutrophil Count 4.71 10^3/uL (1.2-6.7); Basophils % 1.1; Eosinophils % 6.6; HCT 34.6 % (40.0-50.0); HGB 10.8 g/dL (13.5-17.5); Lymphocytes % 6.6; MCH 31.1 pg (27.0-33.0); MCHC 31.2 % (32.0-36.0); MCV 99.7 fL (80-95); MPV 13.4 fL (8.0-11.0); Monocytes % 9.6; Neutrophils % 75.8; Platelet Count 211 10^3/uL (130-400); RBC 3.47 10^6/uL (4.36-5.78); RDW 18.2 % (11.8-14.1); RDW-SD 66.7 fL; WBC 6.22 10^3/uL (4.4-10.8)
== END 2020-11-05 14:07 | disposition home or self-care (01) ==
LOC: LBN 14:06
PROVIDERS: PCP Family Medicine; Visit Provider Family Medicine
DX: C83.38 Diffuse large B-cell lymphoma, lymph nodes of multiple sites (principal); I48.91 Unspecified atrial fibrillation; E44.0 Moderate protein-calorie malnutrition
CPT/HCPCS: 80053; 85025

== ENCOUNTER 2020-12-05 08:31 | Outpatient (RCR) | payer MEDICARE, SELFPAY ==
[2020-12-05 09:12] LABS: Abs Immature Grans 0.03 10^3/uL (0.0-0.06); Absolute Basophil Count 0.04 10^3/uL (0.0-0.2); Absolute Eosinophil Count 0.25 10^3/uL (0.0-0.7); Absolute Monocyte Count 0.64 10^3/uL (0.1-0.8); Absolute Neutrophil Count 4.82 10^3/uL (1.2-6.7); Basophils % 0.6; HCT 40.7 % (40.0-50.0); HGB 12.9 g/dL (13.5-17.5); Immature Grans % 0.5; MCH 31.4 pg (27.0-33.0); MCHC 31.7 % (32.0-36.0); MPV 11.3 fL (8.0-11.0); Monocytes % 10.2; Neutrophils % 76.7; Nucleated RBC 0 %; Platelet Count 170 10^3/uL (130-400); RBC 4.11 10^6/uL (4.36-5.78); RDW 15.8 % (11.8-14.1); RDW-SD 58.4 fL; WBC 6.28 10^3/uL (4.4-10.8)
[2020-12-05] MEDS: Heparin 500 UNITS/5 ML SYRINGE IVP (09:21)
[2020-12-05] MEDS: Normal Saline Flush 10 ML SYR IVP (09:22)
[2020-12-05 09:32] LABS: ALT 25 U/L (16-63); AST 17 U/L (15-37); Albumin 3.3 g/dL (3.4-5.0); Alkaline Phosphatase 109 U/L (46-116); Anion Gap 10.2 mmol/L (3-11); BUN 21 mg/dL (7-18); Bilirubin, Total 0.4 mg/dL (0.2-1.0); CO2 26.8 mmol/L (21.0-32.0); CREATININE 0.7 mg/dL (0.70-1.30); Calcium 8.9 mg/dL (8.5-10.1); Chloride 105 mmol/L (98-107); Glucose 103 mg/dL (74-106); LDH 140 U/L (85-227); Potassium 4.1 mmol/L (3.5-5.1); Sodium 142 mmol/L (136-145); Total Protein 6.5 g/dL (6.4-8.2)
[2020-12-05 11:08] LABS: Magnesium 1.6 mg/dL (1.8-2.4)
== END 2020-12-31 23:59 | disposition home or self-care (01) ==
LOC: INF 08:31
PROVIDERS: PCP Family Medicine; Visit Provider Internal Medicine Hematology & Oncology
DX: C83.38 Diffuse large B-cell lymphoma, lymph nodes of multiple sites (principal); J86.9 Pyothorax without fistula; Z45.2 Encounter for adjustment and management of vascular access device
CPT/HCPCS: 36591; 80053; 83615; 83735; 85025